=== PATIENT | male | born 1995 | race Caucasian/White ===

== ENCOUNTER → 2017-11-25 09:39 | Outpatient (CLI) | payer OTHER, SELFPAY | DX: Z23 Encounter for immunization (principal) | CPT/HCPCS: 90471; 90686 ==

== ENCOUNTER → 2018-11-14 15:24 | Outpatient (CLI) | payer OTHER, SELFPAY | DX: Z23 Encounter for immunization (principal) | CPT/HCPCS: 90471; 90686 ==

== ENCOUNTER → 2019-08-22 10:12 | Outpatient (CLI) | payer OTHER, SELFPAY ==
[2019-08-22 12:24] LABS: Creatinine Urine Random 35.4 mg/dL
[2019-08-22 12:32] LABS: Microalbumi Creatinin Ratio Ur 16.9 ug/mg CR (<30); Microalbumin Urine Random < 0.6 mg/dL (0-1.6)
[2019-08-22 13:52] LABS: Alanine Aminotransferase 19 IU/L (<50); Albumin 4.5 g/dL (3.5-5.0); Albumin Globulin Ratio 1.7 (1.0-2.8); Alkaline Phosphatase 54 U/L (38-126); Aspartate Aminotransferase 26 IU/L (17-59); BUN Creatinine Ratio 16.1 (6-22); Bilirubin Total 1.4 mg/dL (0.2-1.3); Blood Urea Nitrogen 14 mg/dL (9-20); Calcium 9.7 mg/dL (8.4-10.2); Carbon Dioxide 29 mmol/L (22-32); Chloride 102 mmol/L (98-107); Cholesterol 143 mg/dL (140-199); Estimated Glomerular Filt Rate > 60.0 mL/min (>60); Globulin 2.6 g/dL (1.7-4.1); Glucose 146 mg/dL (70-100); HDL Cholesterol 44 mg/dL (40-60); HEMOLYSIS < 15 (0-50); LDL Cholesterol Calculated 91 mg/dL (<100); Potassium 4.7 mmol/L (3.4-5.1); Sodium 137 mmol/L (137-145); Total Protein 7.1 g/dL (6.3-8.2); Triglycerides 38 mg/dL (35-150)
[2019-08-22 14:02] LABS: LDL Cholesterol Direct 95 mg/dL (<100)
== END ==
PROVIDERS: PCP Student in an Organized Health Care Education/Training Program; Referring Provider Internal Medicine Endocrinology, Diabetes & Metabolism; Visit Provider Internal Medicine Endocrinology, Diabetes & Metabolism
DX: E10.649 Type 1 diabetes mellitus with hypoglycemia without coma (principal)
CPT/HCPCS: 36415; 80053; 80061; 82043; 82570; 83721

== ENCOUNTER → 2019-10-03 08:28 | Outpatient (CLI) | payer OTHER, SELFPAY ==
--- NOTE | 2019-10-03 08:28 | DI.MRI.S_ITS ---
PROCEDURE: MR KNEE LT WO CON INDICATIONS: Left knee pain, instability TECHNIQUE: Noncontrast sagittal PD fast spin echo and T2 fast spin echo with fat saturation, sagittal 3-D FLASH with fat saturation; coronal T1 spin echo and PD fast spin echo with fat saturation, and axial PD fast spin echo with fat saturation through the knee. COMPARISON: None. FINDINGS: Image quality: Excellent. Menisci: The medial and lateral menisci demonstrate normal morphology and internal signal. The meniscal root ligaments appear intact. Cruciate ligaments: The anterior and posterior cruciate ligaments appear intact. Medial structures: Mild thickening of the proximal medial collateral ligament is most likely related to an old sprain. Visualized portions of the pes anserinus tendons appear normal. No abnormal bursal fluid. Lateral structures: The lateral collateral ligament, long and short heads of the biceps femoris tendon appear intact. The popliteus tendon appears intact. No signs of posterolateral corner injury. Iliotibial band appears normal. Anterior structures: There is mild patella violeta. A mildly congenitally shallow trochlear groove is seen without patellar subluxation. The tibial tubercle-trochlear groove distance is within normal limits. The medial patellofemoral ligament is grossly intact. No edema in the infrapatellar fat pad. Bones and cartilage: No bone marrow contusions or fractures. A focal full-thickness cartilage defect is seen at the anterior weight-bearing portion of the lateral femoral condyle measuring approximately 5 x 3 mm with associated subchondral cystic changes. There is a mildly concave appearance of the anterolateral portion of the lateral femoral condyle without associated edema. Additional larger areas of full-thickness cartilage loss are seen in the median ridge and medial facet of the patella. The pattern of injuries is suspicious for a remote prior episode of transient lateral patellar dislocation. The medial compartment articular cartilage is maintained. Joint space: There is a small joint effusion. A trace medial popliteal cyst is present. IMPRESSION: 1. Full-thickness cartilage loss is seen in the inferior portion of the median ridge and medial facet of the patella. Additional focus of cartilage loss is seen at the anterior weight-bearing portion of the lateral femoral condyle with subchondral cystic changes, and there is mild chronic cortical irregularity of the adjacent anterolateral portion of the lateral femoral condyle. The pattern of injuries is suspicious for a remote prior episode of transient lateral patellar dislocation. 2. Mild patella violeta. 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 The tibial tubercle-trochlear groove distance is within normal limits. 3. Intact cruciate and collateral ligaments. No meniscal tear. 4. Small joint effusion. Dictated by: Ruben Hart M.D. on 10/03/2019 at 9:41 Approved by: Ruben Hart M.D. on 10/03/2019 at 9:54
== END ==
PROVIDERS: PCP Student in an Organized Health Care Education/Training Program; Referring Provider Student in an Organized Health Care Education/Training Program; Visit Provider Student in an Organized Health Care Education/Training Program
DX: M25.562 Pain in left knee (principal); M22.2X2 Patellofemoral disorders, left knee; M25.462 Effusion, left knee
CPT/HCPCS: 73721

== ENCOUNTER → 2019-11-17 02:57 | Outpatient (CLI) | payer OTHER, SELFPAY | PROVIDERS: PCP Student in an Organized Health Care Education/Training Program; Referring Provider Internal Medicine; Visit Provider Internal Medicine | DX: Z23 Encounter for immunization (principal) | CPT/HCPCS: 90471; 90686 ==

== ENCOUNTER → 2019-12-20 11:24 | Outpatient (CLI) | payer OTHER, SELFPAY ==
[2019-12-20 14:53] LABS: Hemoglobin A1C% w Est Avg Glu 7.2 % (4.0-6.0)
== END ==
PROVIDERS: PCP Student in an Organized Health Care Education/Training Program; Referring Provider Internal Medicine Endocrinology, Diabetes & Metabolism; Visit Provider Internal Medicine Endocrinology, Diabetes & Metabolism
DX: E10.8 Type 1 diabetes mellitus with unspecified complications (principal); E10.649 Type 1 diabetes mellitus with hypoglycemia without coma
CPT/HCPCS: 83036

== ENCOUNTER → 2020-01-16 12:12 | Outpatient (CLI) | payer OTHER, SELFPAY ==
[2020-01-17 08:22] LABS: Varicella IgG Antibody 261 index (Immune >165)
[2020-01-17 23:59] LABS: QuantiFERON Mitogen Value 7.69 IU/mL (.); QuantiFERON Nil Value 0.28 IU/mL (.); QuantiFERON TB Gold Plus Positive (Negative); QuantiFERON TB1 Ag Value 2.41 IU/mL (.); QuantiFERON TB2 Ag Value 1.33 IU/mL (.)
== END ==
PROVIDERS: PCP Student in an Organized Health Care Education/Training Program; Referring Provider Student in an Organized Health Care Education/Training Program; Visit Provider Student in an Organized Health Care Education/Training Program
DX: Z02.0 Encounter for examination for admission to educational institution (principal)
CPT/HCPCS: 36415; 86480; 86787

== ENCOUNTER → 2020-01-18 19:23 | Outpatient (CLI) | payer OTHER, SELFPAY ==
--- NOTE | 2020-01-18 19:25 | DI.RAD.S_ITS ---
PROCEDURE: XR CHEST 2V INDICATIONS: Positive quantiferon assay TECHNIQUE: 2 views of the chest were acquired. COMPARISON: None. FINDINGS: Surgical changes and devices: None. Lungs and pleura: Lungs are clear. No pleural effusions or pneumothorax. Mediastinum: Mediastinal contours are normal. Heart size is normal. Bones and chest wall: No suspicious bony abnormalities. Soft tissues appear unremarkable. IMPRESSION: No evidence acute pulmonary process. No evidence of active pulmonary tuberculosis. Dictated by: Shahriar Lovett M.D. on 01/18/2020 at 19:34 Approved by: Shahriar Lovett M.D. on 01/18/2020 at 19:34
== END ==
PROVIDERS: PCP Student in an Organized Health Care Education/Training Program; Referring Provider Student in an Organized Health Care Education/Training Program; Visit Provider Student in an Organized Health Care Education/Training Program
DX: R76.12 Nonspecific reaction to cell mediated immunity measurement of gamma interferon antigen response without active tuberculosis (principal)
CPT/HCPCS: 71046

== ENCOUNTER → 2020-03-11 08:16 | Outpatient (CLI) | payer OTHER, SELFPAY ==
[2020-03-11 10:04] LABS: COVID19 -Nasal RAPID Negative (Negative)
== END ==
PROVIDERS: PCP Student in an Organized Health Care Education/Training Program; Visit Provider Family Medicine Sleep Medicine
DX: Z20.822 Contact with and (suspected) exposure to COVID-19 (principal); G47.30 Sleep apnea, unspecified
CPT/HCPCS: 87635; 95810

== ENCOUNTER → 2020-03-12 11:45 | Outpatient (CLI) | payer OTHER, SELFPAY ==
[2020-03-12 12:55] LABS: Ur Creatinine Normal (Normal)
[2020-03-12 12:56] LABS: UR Morphine/Opiate cutoff 300 Negative (Negative); Ur Specific Gravity Normal (Normal); Urine Amphetamines Negative (Negative); Urine Barbiturates Negative (Negative); Urine Benzodiazepines Negative (Negative); Urine Cocaine Negative (Negative); Urine MDMA Negative (Negative); Urine Methadone Negative (Negative); Urine Methamphetamines Negative (Negative); Urine Oxycodone Negative (Negative); Urine Phencyclidine Negative (Negative); Urine Tetrahydrocannabinol Negative (Negative); Urine Tricyclic Antidepressant Negative (Negative); Urine pH Normal (Normal)
== END ==
PROVIDERS: PCP Student in an Organized Health Care Education/Training Program; Visit Provider Family Medicine Sleep Medicine
DX: G47.19 Other hypersomnia (principal); G47.30 Sleep apnea, unspecified
CPT/HCPCS: 80305; 95805

== ENCOUNTER → 2020-10-16 08:32 | Outpatient (CLI) | payer OTHER, SELFPAY ==
[2020-10-16 10:23] LABS: Alanine Aminotransferase 22 IU/L (<50); Albumin Globulin Ratio 1.4 (1.0-2.8); Alkaline Phosphatase 46 U/L (38-126); Aspartate Aminotransferase 29 IU/L (17-59); BUN Creatinine Ratio 20.8 (6-22); Bilirubin Total 1.2 mg/dL (0.2-1.3); Blood Urea Nitrogen 16 mg/dL (9-20); Calcium 9.2 mg/dL (8.4-10.2); Carbon Dioxide 28 mmol/L (22-32); Chloride 105 mmol/L (98-107); Cholesterol 163 mg/dL (140-199); Estimated Glomerular Filt Rate > 60.0 mL/min (>60); Globulin 2.8 g/dL (1.7-4.1); Glucose 118 mg/dL (70-100); HDL Cholesterol 59 mg/dL (40-60); HEMOLYSIS < 15 (0-50); LDL Cholesterol Calculated 98 mg/dL (<100); Potassium 4.1 mmol/L (3.4-5.1); Sodium 137 mmol/L (137-145); Total Protein 6.8 g/dL (6.3-8.2); Triglycerides 31 mg/dL (35-150)
[2020-10-16 10:24] LABS: Creatinine Urine Random 174.4 mg/dL
[2020-10-16 10:28] LABS: Microalbumi Creatinin Ratio Ur 4.5 ug/mg CR (<30); Microalbumin Urine Random 0.8 mg/dL (0-1.6)
[2020-10-16 12:19] LABS: Hemoglobin A1C% w Est Avg Glu 6.6 % (4.0-6.0)
== END ==
PROVIDERS: Family Provider Student in an Organized Health Care Education/Training Program; PCP Student in an Organized Health Care Education/Training Program; Referring Provider Internal Medicine Endocrinology, Diabetes & Metabolism; Visit Provider Internal Medicine Endocrinology, Diabetes & Metabolism
DX: E10.649 Type 1 diabetes mellitus with hypoglycemia without coma (principal)
CPT/HCPCS: 36415; 80053; 80061; 82043; 82570; 83036

== ENCOUNTER 2020-10-22 07:30 | Outpatient (RCR) | payer OTHER, SELFPAY ==
--- NOTE | 2020-05-01 10:18 | PT.OIE ---
Current Diagnoses Recurrent dislocation of patella, left knee (05/01/20) Difficulty in walking, not elsewhere classified (05/01/20) Weakness (05/01/20) Past Medical History (Last Updated 04/29/20 @ 13:14 by Sarah Solano PA-C) Oral thrush Visit Care Team Role Provider Type Octavio Whaley MD Family Provider Physician Primary Care Provider Specialty: Internal Medicine Address: [address] [place] [address], [address], [address] Email: [email or web address] Henrik Cabrera MD Attending Provider Non-Staff Referring Provider Specialty: Medical Address: [address] [place] [address], [phone] Email: Physical Therapy Initial Evaluation PT-OP-A Visit Information Start: 04/30/20 17:12 Freq: Status: Active Protocol: Document 05/01/20 07:27 [facility] (Rec: 05/01/20 08:15 [facility] [id number]) Out-Patient Physical Therapy Visit Information Visit Information Visit Type Initial Evaluation Visit Note 18 visits before pre auth Visit Start Time 07:30 Visit Stop Time 08:15 Total Visit Minutes 45 Visit Number 1 Number of SIFTER OPERATOR Visits 0 PT-OP-B Current Condition Start: 04/30/20 17:12 Freq: Status: Active Protocol: Document 05/01/20 07:27 [facility] (Rec: 05/01/20 08:15 [facility] [id number]) Current Condition History of Current Condition Onset Date 04/25/20 Current Complaints L arthroscopic lat release, open MPFL reconstruction& tibial tub osteotomy History of Current Condition Pt reports surgery went well and they used donor tendon for L arthroscopic lat release, open MPFL reconstruction& tibial tubercle osteotomy. Prior to surgery, pt subluxed his patella at least 4 times starting in 2014 when he first tore it. He had slipped on a piece of ice and leg went out to the side. Pain has not been too bad. Pt got CPM yesterday and that he will have it for 3 weeks. Pt was told to keep brace at 0 and can reposition with up to 30 deg. He changed the guaze yesterday. Follow up is next Tuesday. Was told you bear up to 50% on his LLE. Prior Treatments and Tests Tried PT and was unsuccessful Treatment Goals Patient/Caregiver Goals return to hiking, has clinical starting in a couple weeks, make sure that he can get as much movement out of his knee as possible w/goal of full range PT-OP-C Subjective Start: 04/30/20 17:12 Freq: Status: Active Protocol: Document 05/01/20 07:27 [facility] (Rec: 05/01/20 08:15 [facility] [id number]) Patient Questionnaires Lower Extremity Functional Scale LEFS Score 23 OP-PT Pain Assessment Location L knee Pain Location Details around patella Intensity 4 Scale Used Numeric (0 - 10) Description Aching,With Movement Description- Other can't get comfortable Frequency Intermittent Pain Aggravating Factors Standing,Walking Pain Alleviating Factors Cold,Elevation PT-OP-F Manual Assessment Start: 04/30/20 17:12 Freq: Status: Active Protocol: Document 05/01/20 07:27 [facility] (Rec: 05/01/20 08:15 [facility] [id number]) Manual Assessments Soft Tissue Assessment Soft Tissue Mobility Assessment mild swelling on L side, Pt w/ guaze wrap so incision not assessed PT-OP-G Mobility & Gait Start: 04/30/20 17:12 Freq: Status: Active Protocol: Document 05/01/20 07:27 [facility] (Rec: 05/01/20 08:15 [facility] [id number]) OP Gait Assessment Comments Gait Comments Pt amb in locked brace NWB with B auxillary crutches PT-OP-K Range of Motion Start: 04/30/20 17:12 Freq: Status: Active Protocol: Document 05/01/20 07:27 [facility] (Rec: 05/01/20 08:15 [facility] [id number]) Knee Goniometric Range of Motion Knee Right Flexion Active (degrees) 140 Extension Active (degrees) 0 Left Flexion Active (degrees) 40 Extension Active (degrees) 8 PT-OP-M Strength Start: 04/30/20 17:12 Freq: Status: Active Protocol: Document 05/01/20 07:27 [facility] (Rec: 05/01/20 08:15 [facility] [id number]) Hip Strength Hip Manual Muscle Testing Right Flexion (L2) 5 Normal Extension (S1) 5 Normal External Rotation 5 Normal Internal Rotation 5 Normal Left Flexion (L2) 2+ Poor+ Extension (S1) 3 Fair Abduction 4- Good- Adduction 3+ Fair+ Comments rotations not tested d/t restrictions, tested hip flex w/SL brace on Knee Strength Knee Manual Muscle Testing Right Flexion (S2) 5 Normal Extension (L3) 5 Normal Left Comments n/t tested d/t restrictions Ankle/Foot Strength Ankle and Foot Manual Muscle Testing Right Dorsiflexion (L4) 5 Normal Plantarflexion (S1) 5 Normal Left Dorsiflexion (L4) 5 Normal Plantarflexion (S1) 5 Normal Comments PF tested seated B PT-OP-Q Treatments Start: 04/30/20 17:12 Freq: Status: Active Protocol: Document 05/01/20 07:27 [facility] (Rec: 05/01/20 08:15 [facility] [id number]) Therapeutic Exercises Supine Exercises HS stretch Side left Reps/Minutes 30 sec quad set Side left Reps/Minutes 5 sec x10 heel slides Side left Reps/Minutes 15 Comments to 40 deg Prone Exercises hang Prone Exercise Name for knee ext Side left Reps/Minutes 1 min PT-OP-T Assessment and Plan Start: 04/30/20 17:12 Freq: Status: Active Protocol: Document 05/01/20 07:27 [facility] (Rec: 05/01/20 08:15 [facility] [id number]) Physical Therapy Assessment Rehab Potential Rehabilitation Potential Good Evaluation Complexity Number of Personal Factors/Comorbidities 1-2 Number of Body Systems Impaired 4 or More Clinical Presentation at Evaluation Evolving Impairments Impairments Activity Tolerance,Balance, Edema,Functional Activities, Functional Mobility,Gait, Integument,Pain,ROM,Soft Tissue Mobility,Strength, Transfers Goals LEFS Impairment 23 Short Term Goal (STG) Pt will improve score to at least 45/80 to show improved functional ability. STG Duration 06/06/20 Skilled Nursing Goal (LTG) Pt will improve score to at least 65/80 to show improved functional ability. LTG Duration 08/01/20 functional activity Short Term Goal (STG) Pt will be able to squat down to spanish moss picker objects. STG Duration 07/01/20 Briar Shop Supervisor Goal (LTG) Pt will be able to return to full work and school duties without inc pain. LTG Duration 08/01/20 gait Short Term Goal (STG) Pt will be able to amb with good mechanics with brace for up to 1/2 mile. STG Duration 06/26/20 Briar Shop Supervisor Goal (LTG) pt will be able to amb without brace with good mechancis and no pain for at least 2 miles. LTG Duration 08/01/20 strength Short Term Goal (STG) Pt will be indep with HEP STG Duration 06/01/20 Skilled Nursing Goal (LTG) Pt will score 5/5 on all LE strength B to show imrpoved stability to allow full return to activity LTG Duration 08/01/20 ROM Short Term Goal (STG) Pt will improve AROM to 0-115 STG Duration 06/30/20 Briar Shop Supervisor Goal (LTG) Pt will have full ROM 0-135 without pain in order to allow him to return to typical activities including descending stairs without pain . LTG Duration 08/01/20 Assessment Summary Assessment Pt presents 6 days s/p L arthroscopic lat release, open MPFL reconstruction& tibial tub osteotomy with good pain control. Pt has protocol to follow for 20 weeks with questions re: protocol already directed to physician office. He is using a CPM at home for ROM and is in a locked brace for gait at this time and using brace in unlocked position to 0-45 for the first 2 weeks. 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 He would benefit from PT to work on ROM , strength, gait mechanics & balance to return to full activity and dec pain. Physical Therapy Plan Frequency and Duration Frequency of Treatment 1-2x/week Duration of Treatment 3 months Plan of Care Start Date 05/01/20 Plan of Care End Date 08/01/20 Therapeutic Interventions Therapeutic Interventions Aquatic Therapy,Balance Training,Gait Training,Home Exercise Program,Joint Mobilizations,Manual Therapy, Neuromuscular Re-education, Patient/Caregiver Education, Self-Care/Home Management,Soft Tissue Mobilization,Taping, Therapeutic Activities, Therapeutic Exercises Modalities Cold Pack/Ice Massage,Electric Stimulation,Hot Packs, Infrared Therapy,Iontophoresis ,Ultrasound Next Visit Focus/Plan Next Note Type Treatment Note Next Visit Plan Review exercises, HS set, SLR, s/l abd, s/l add, prone ext, SAQ, progress exercises based on information after physician office returns call to PT w/ questions re: ROM & WB, STM
--- NOTE | 2020-05-01 10:18 | PT.OPPOC ---
Physical, Occupational & Speech Therapy At [facility] Current Diagnoses Recurrent dislocation of patella, left knee (05/01/20) Difficulty in walking, not elsewhere classified (05/01/20) Weakness (05/01/20) Visit Care Team Role Provider Type Octavio Whaley MD Family Provider Physician Primary Care Provider Specialty: Internal Medicine Address: [address] [place] [address], [facility] [address], [address] Email: [email or web address] Henrik Cabrera MD Attending Provider Non-Staff Referring Provider Specialty: Medical Address: [address] [place] [address], [phone] Email: Plan Of Care PT-OP-T Assessment and Plan Start: 04/30/20 17:12 Freq: Status: Active Protocol: Document 05/01/20 07:27 [facility] (Rec: 05/01/20 08:15 [facility] [id number]) Physical Therapy Assessment Rehab Potential Rehabilitation Potential Good Evaluation Complexity Number of Personal Factors/Comorbidities 1-2 Number of Body Systems Impaired 4 or More Clinical Presentation at Evaluation Evolving Impairments Impairments Activity Tolerance,Balance, Edema,Functional Activities, Functional Mobility,Gait, Integument,Pain,ROM,Soft Tissue Mobility,Strength, Transfers Goals LEFS Impairment 23 Short Term Goal (STG) Pt will improve score to at least 45/80 to show improved functional ability. STG Duration 06/06/20 Jail Goal (LTG) Pt will improve score to at least 65/80 to show improved functional ability. LTG Duration 08/01/20 functional activity Short Term Goal (STG) Pt will be able to squat down to pickling tank operator objects. STG Duration 07/01/20 Database Reporting Consultant Goal (LTG) Pt will be able to return to full work and school duties without inc pain. LTG Duration 08/01/20 gait Short Term Goal (STG) Pt will be able to amb with good mechanics with brace for up to 1/2 mile. STG Duration 06/26/20 Database Reporting Consultant Goal (LTG) pt will be able to amb without brace with good mechancis and no pain for at least 2 miles. LTG Duration 08/01/20 strength Short Term Goal (STG) Pt will be indep with HEP STG Duration 06/01/20 Jail Goal (LTG) Pt will score 5/5 on all LE strength B to show imrpoved stability to allow full return to activity LTG Duration 08/01/20 ROM Short Term Goal (STG) Pt will improve AROM to 0-115 STG Duration 06/30/20 Database Reporting Consultant Goal (LTG) Pt will have full ROM 0-135 without pain in order to allow him to return to typical activities including descending stairs without pain . LTG Duration 08/01/20 Assessment Summary Assessment Pt presents 6 days s/p L arthroscopic lat release, open MPFL reconstruction& tibial tub osteotomy with good pain control. Pt has protocol to follow for 20 weeks with questions re: protocol already directed to physician office. He is using a CPM at home for ROM and is in a locked brace for gait at this time and using brace in unlocked position to 0-45 for the first 2 weeks. 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 He would benefit from PT to work on ROM , strength, gait mechanics & balance to return to full activity and dec pain. Physical Therapy Plan Frequency and Duration Frequency of Treatment 1-2x/week Duration of Treatment 3 months Plan of Care Start Date 05/01/20 Plan of Care End Date 08/01/20 Therapeutic Interventions Therapeutic Interventions Aquatic Therapy,Balance Training,Gait Training,Home Exercise Program,Joint Mobilizations,Manual Therapy, Neuromuscular Re-education, Patient/Caregiver Education, Self-Care/Home Management,Soft Tissue Mobilization,Taping, Therapeutic Activities, Therapeutic Exercises Modalities Cold Pack/Ice Massage,Electric Stimulation,Hot Packs, Infrared Therapy,Iontophoresis ,Ultrasound Next Visit Focus/Plan Next Note Type Treatment Note Next Visit Plan Review exercises, HS set, SLR, s/l abd, s/l add, prone ext, SAQ, progress exercises based on information after physician office returns call to PT w/ questions re: ROM & WB, STM Plan of Care Dates Plan of Care Start Date 05/01/20 Plan of Care End Date 08/01/20 Electronically Signed by: Frances Antonio, PT 05/01/20 1018 Please Sign and Return: I have reviewed this Plan of Care and certify that the skilled therapy services above are required to meet the patient?s needs. Physician Signature Date Printed Name and Credentials Clinical Instructor Signature Printed Name and Credentials
--- NOTE | 2020-05-05 08:18 | PT.OTN ---
Current Diagnoses Recurrent dislocation of patella, left knee (05/05/20) Difficulty in walking, not elsewhere classified (05/05/20) Weakness (05/05/20) Physical Therapy Treatment Note PT-OP-A Visit Information Start: 04/30/20 17:12 Freq: Status: Active Protocol: Document 05/05/20 07:30 [facility] (Rec: 05/05/20 08:18 [facility] [id number]) Out-Patient Physical Therapy Visit Information Visit Information Visit Type Treatment Note Visit Start Time 07:30 Visit Stop Time 08:15 Total Visit Minutes 45 Visit Number 2 Number of CARE PROGRAM RESIDENT Visits 0 PT-OP-B Current Condition Start: 04/30/20 17:12 Freq: Status: Active Protocol: Document 05/01/20 07:27 [facility] (Rec: 05/01/20 08:15 [facility] [id number]) Current Condition History of Current Condition Onset Date 04/25/20 Current Complaints L arthroscopic lat release, open MPFL reconstruction& tibial tub osteotomy History of Current Condition Pt reports surgery went well and they used donor tendon for L arthroscopic lat release, open MPFL reconstruction& tibial tubercle osteotomy. Prior to surgery, pt subluxed his patella at least 4 times starting in 2014 when he first tore it. He had slipped on a piece of ice and leg went out to the side. Pain has not been too bad. Pt got CPM yesterday and that he will have it for 3 weeks. Pt was told to keep brace at 0 and can reposition with up to 30 deg. He changed the guaze yesterday. Follow up is next Tuesday. Was told you bear up to 50% on his LLE. Prior Treatments and Tests Tried PT and was unsuccessful Treatment Goals Patient/Caregiver Goals return to hiking, has clinical starting in a couple weeks, make sure that he can get as much movement out of his knee as possible w/goal of full range PT-OP-C Subjective Start: 04/30/20 17:12 Freq: Status: Active Protocol: Document 05/05/20 07:30 [facility] (Rec: 05/05/20 08:18 [facility] [id number]) OP-PT Subjective Patient Comments Patient Comments Pt reprots being able to get up to 57 deg on CPM this weekend. He had inc swelling after shower when did standing . PT-OP-F Manual Assessment Start: 04/30/20 17:12 Freq: Status: Active Protocol: Document 05/01/20 07:27 [facility] (Rec: 05/01/20 08:15 [facility] [id number]) Manual Assessments Soft Tissue Assessment Soft Tissue Mobility Assessment mild swelling on L side, Pt w/ guaze wrap so incision not assessed PT-OP-G Mobility & Gait Start: 04/30/20 17:12 Freq: Status: Active Protocol: Document 05/01/20 07:27 [facility] (Rec: 05/01/20 08:15 [facility] [id number]) OP Gait Assessment Comments Gait Comments Pt amb in locked brace NWB with B auxillary crutches PT-OP-K Range of Motion Start: 04/30/20 17:12 Freq: Status: Active Protocol: Document 05/01/20 07:27 [facility] (Rec: 05/01/20 08:15 [facility] [id number]) Knee Goniometric Range of Motion Knee Right Flexion Active (degrees) 140 Extension Active (degrees) 0 Left Flexion Active (degrees) 40 Extension Active (degrees) 8 PT-OP-M Strength Start: 04/30/20 17:12 Freq: Status: Active Protocol: Document 05/01/20 07:27 [facility] (Rec: 05/01/20 08:15 [facility] [id number]) Hip Strength Hip Manual Muscle Testing Right Flexion (L2) 5 Normal Extension (S1) 5 Normal External Rotation 5 Normal Internal Rotation 5 Normal Left Flexion (L2) 2+ Poor+ Extension (S1) 3 Fair Abduction 4- Good- Adduction 3+ Fair+ Comments rotations not tested d/t restrictions, tested hip flex w/SL brace on Knee Strength Knee Manual Muscle Testing Right Flexion (S2) 5 Normal Extension (L3) 5 Normal Left Comments n/t tested d/t restrictions Ankle/Foot Strength Ankle and Foot Manual Muscle Testing Right Dorsiflexion (L4) 5 Normal Plantarflexion (S1) 5 Normal Left Dorsiflexion (L4) 5 Normal Plantarflexion (S1) 5 Normal Comments PF tested seated B PT-OP-Q Treatments Start: 04/30/20 17:12 Freq: Status: Active Protocol: Document 05/05/20 07:30 [facility] (Rec: 05/05/20 08:18 [facility] [id number]) Therapeutic Exercises Supine Exercises glute sets Side bilateral Reps/Minutes 1. B 5x 2. single alt 5 x ea HS set Side left Reps/Minutes 5 sec x10 SLR Supine Exercise Name brace locked Side left Reps/Minutes 10 TKE Supine Exercise Name SAQ Side left Reps/Minutes 15 quad set Side left Reps/Minutes 5 sec x10 heel slides Side left Reps/Minutes 10 Comments to 60 deg Prone Exercises hip ext Prone Exercise Name alt Side bilateral Reps/Minutes 15 Sidelying Exercises hip add Side left Reps/Minutes 15 hip abd Side bilateral Reps/Minutes 15 Gait Training Gait Activity WB Comments 1. standing on scale for 50% WB 2. STep through on scale for 50% WB 3. walking with crutches 50% WB PT-OP-T Assessment and Plan Start: 04/30/20 17:12 Freq: Status: Active Protocol: Document 05/05/20 07:30 [facility] (Rec: 05/05/20 08:18 [facility] [id number]) Physical Therapy Assessment Goals LEFS Impairment 23 Short Term Goal (STG) Pt will improve score to at least 45/80 to show improved functional ability. STG Duration 06/06/20 Lead Teacher Goal (LTG) Pt will improve score to at least 65/80 to show improved functional ability. LTG Duration 08/01/20 functional activity Short Term Goal (STG) Pt will be able to squat down to olive picker objects. STG Duration 07/01/20 Lead Teacher Goal (LTG) Pt will be able to return to full work and school duties without inc pain. LTG Duration 08/01/20 gait Short Term Goal (STG) Pt will be able to amb with good mechanics with brace for up to 1/2 mile. STG Duration 06/26/20 Lead Teacher Goal (LTG) pt will be able to amb without brace with good mechancis and no pain for at least 2 miles. LTG Duration 08/01/20 strength Short Term Goal (STG) Pt will be indep with HEP STG Duration 06/01/20 Lead Teacher Goal (LTG) Pt will score 5/5 on all LE strength B to show imrpoved stability to allow full return to activity LTG Duration 08/01/20 ROM Short Term Goal (STG) Pt will improve AROM to 0-115 STG Duration 06/30/20 Lead Teacher Goal (LTG) Pt will have full ROM 0-135 without pain in order to allow him to return to typical activities including descending stairs without pain . LTG Duration 08/01/20 Assessment Summary Assessment Pt is on week 2 of rehab as of Tuesday and is progressing well with range. He was able to inc range ot 56 AROM with heel slide today. His MD office returned call and said pt could be 50% WB and he could inc ROM to 60 deg week 2 . He had no inc pain with exercises today Physical Therapy Plan Frequency and Duration Frequency of Treatment 1-2x/week Duration of Treatment 3 months Plan of Care Start Date 05/01/20 Plan of Care End Date 08/01/20 Next Visit Focus/Plan Next Note Type Treatment Note Next Visit Plan Progress per physician after appt,
--- NOTE | 2020-05-12 08:15 | PT.OTN ---
Current Diagnoses Recurrent dislocation of patella, left knee (05/12/20) Difficulty in walking, not elsewhere classified (05/12/20) Weakness (05/12/20) Physical Therapy Treatment Note PT-OP-A Visit Information Start: 04/30/20 17:12 Freq: Status: Active Protocol: Document 05/12/20 07:29 [facility] (Rec: 05/12/20 08:15 [facility] [id number]) Out-Patient Physical Therapy Visit Information Visit Information Visit Type Treatment Note Visit Start Time 07:31 Visit Stop Time 08:11 Total Visit Minutes 40 Visit Number 3 Number of MATH SPECIALIST Visits 0 PT-OP-B Current Condition Start: 04/30/20 17:12 Freq: Status: Active Protocol: Document 05/01/20 07:27 [facility] (Rec: 05/01/20 08:15 [facility] [id number]) Current Condition History of Current Condition Onset Date 04/25/20 Current Complaints L arthroscopic lat release, open MPFL reconstruction& tibial tub osteotomy History of Current Condition Pt reports surgery went well and they used donor tendon for L arthroscopic lat release, open MPFL reconstruction& tibial tubercle osteotomy. Prior to surgery, pt subluxed his patella at least 4 times starting in 2014 when he first tore it. He had slipped on a piece of ice and leg went out to the side. Pain has not been too bad. Pt got CPM yesterday and that he will have it for 3 weeks. Pt was told to keep brace at 0 and can reposition with up to 30 deg. He changed the guaze yesterday. Follow up is next Tuesday. Was told you bear up to 50% on his LLE. Prior Treatments and Tests Tried PT and was unsuccessful Treatment Goals Patient/Caregiver Goals return to hiking, has clinical starting in a couple weeks, make sure that he can get as much movement out of his knee as possible w/goal of full range PT-OP-C Subjective Start: 04/30/20 17:12 Freq: Status: Active Protocol: Document 05/12/20 07:29 [facility] (Rec: 05/12/20 08:15 [facility] [id number]) OP-PT Subjective Patient Comments Patient Comments Pt reports occ shooting pains med up to just sup of knee. Notes MD said after he gets to 90 deg, he can inc WB. notes said he can go past the 15 deg recommended as long as its comfortable. PT-OP-F Manual Assessment Start: 04/30/20 17:12 Freq: Status: Active Protocol: Document 05/01/20 07:27 [facility] (Rec: 05/01/20 08:15 [facility] [id number]) Manual Assessments Soft Tissue Assessment Soft Tissue Mobility Assessment mild swelling on L side, Pt w/ guaze wrap so incision not assessed PT-OP-G Mobility & Gait Start: 04/30/20 17:12 Freq: Status: Active Protocol: Document 05/01/20 07:27 [facility] (Rec: 05/01/20 08:15 [facility] [id number]) OP Gait Assessment Comments Gait Comments Pt amb in locked brace NWB with B auxillary crutches PT-OP-K Range of Motion Start: 04/30/20 17:12 Freq: Status: Active Protocol: Document 05/01/20 07:27 [facility] (Rec: 05/01/20 08:15 [facility] [id number]) Knee Goniometric Range of Motion Knee Right Flexion Active (degrees) 140 Extension Active (degrees) 0 Left Flexion Active (degrees) 40 Extension Active (degrees) 8 PT-OP-M Strength Start: 04/30/20 17:12 Freq: Status: Active Protocol: Document 05/01/20 07:27 [facility] (Rec: 05/01/20 08:15 [facility] [id number]) Hip Strength Hip Manual Muscle Testing Right Flexion (L2) 5 Normal Extension (S1) 5 Normal External Rotation 5 Normal Internal Rotation 5 Normal Left Flexion (L2) 2+ Poor+ Extension (S1) 3 Fair Abduction 4- Good- Adduction 3+ Fair+ Comments rotations not tested d/t restrictions, tested hip flex w/SL brace on Knee Strength Knee Manual Muscle Testing Right Flexion (S2) 5 Normal Extension (L3) 5 Normal Left Comments n/t tested d/t restrictions Ankle/Foot Strength Ankle and Foot Manual Muscle Testing Right Dorsiflexion (L4) 5 Normal Plantarflexion (S1) 5 Normal Left Dorsiflexion (L4) 5 Normal Plantarflexion (S1) 5 Normal Comments PF tested seated B PT-OP-Q Treatments Start: 04/30/20 17:12 Freq: Status: Active Protocol: Document 05/12/20 07:29 [facility] (Rec: 05/12/20 08:15 [facility] [id number]) Gym Equipment Therapeutic Ball supine Ball Size/Color 55cm Body Position Supine Comments 1. double leg knee flex x20 2. single leg knee flex x20 L 3. bridge w/knees ext 2x10 Therapeutic Exercises Sidelying Exercises hip abd Side left Reps/Minutes 15 Sitting Exercises flex Sitting Exercise Name seated slides on ground Side left Reps/Minutes 10x10 sec hold Manual Therapy Treatment Soft Tissue Mobilization L thigh Body Location L Comments 1. ITB rolling 2. MFR circumfrential thigh Self-Care/Home Management Treatment Education Other Education edu on what ROM progression will look like PT-OP-T Assessment and Plan Start: 04/30/20 17:12 Freq: Status: Active Protocol: Document 05/12/20 07:29 [facility] (Rec: 05/12/20 08:15 [facility] [id number]) Physical Therapy Assessment Goals LEFS Impairment 23 Short Term Goal (STG) Pt will improve score to at least 45/80 to show improved functional ability. STG Duration 06/06/20 Compressor Assembler Goal (LTG) Pt will improve score to at least 65/80 to show improved functional ability. LTG Duration 08/01/20 functional activity Short Term Goal (STG) Pt will be able to squat down to orange picking supervisor objects. STG Duration 07/01/20 Long-Term Goal (LTG) Pt will be able to return to full work and school duties without inc pain. LTG Duration 08/01/20 gait Short Term Goal (STG) Pt will be able to amb with good mechanics with brace for up to 1/2 mile. STG Duration 06/26/20 Compressor Assembler Goal (LTG) pt will be able to amb without brace with good mechancis and no pain for at least 2 miles. LTG Duration 08/01/20 strength Short Term Goal (STG) Pt will be indep with HEP STG Duration 06/01/20 Long-Term Goal (LTG) Pt will score 5/5 on all LE strength B to show imrpoved stability to allow full return to activity LTG Duration 08/01/20 ROM Short Term Goal (STG) Pt will improve AROM to 0-115 STG Duration 06/30/20 Compressor Assembler Goal (LTG) Pt will have full ROM 0-135 without pain in order to allow him to return to typical activities including descending stairs without pain . LTG Duration 08/01/20 Assessment Summary Assessment Pt is doing well with ROM and was ble to get 70 deg upon attending session. He was easily able to get to 75 deg with session where brace was locked. Physical Therapy Plan Frequency and Duration Frequency of Treatment 1-2x/week Duration of Treatment 3 months Plan of Care Start Date 05/01/20 Plan of Care End Date 08/01/20 Next Visit Focus/Plan Next Note Type Treatment Note Next Visit Plan cont to porgress as tolerated
--- NOTE | 2020-05-19 08:15 | PT.OTN ---
Current Diagnoses Recurrent dislocation of patella, left knee (05/19/20) Difficulty in walking, not elsewhere classified (05/19/20) Weakness (05/19/20) Physical Therapy Treatment Note PT-OP-A Visit Information Start: 04/30/20 17:12 Freq: Status: Active Protocol: Document 05/19/20 07:43 [facility] (Rec: 05/19/20 08:14 [facility] [id number]) Out-Patient Physical Therapy Visit Information Visit Information Visit Type Treatment Note Visit Start Time 07:31 Visit Stop Time 08:12 Total Visit Minutes 41 Visit Number 4 Number of FIELD CARE MANAGER Visits 0 PT-OP-B Current Condition Start: 04/30/20 17:12 Freq: Status: Active Protocol: Document 05/01/20 07:27 [facility] (Rec: 05/01/20 08:15 [facility] [id number]) Current Condition History of Current Condition Onset Date 04/25/20 Current Complaints L arthroscopic lat release, open MPFL reconstruction& tibial tub osteotomy History of Current Condition Pt reports surgery went well and they used donor tendon for L arthroscopic lat release, open MPFL reconstruction& tibial tubercle osteotomy. Prior to surgery, pt subluxed his patella at least 4 times starting in 2014 when he first tore it. He had slipped on a piece of ice and leg went out to the side. Pain has not been too bad. Pt got CPM yesterday and that he will have it for 3 weeks. Pt was told to keep brace at 0 and can reposition with up to 30 deg. He changed the guaze yesterday. Follow up is next Tuesday. Was told you bear up to 50% on his LLE. Prior Treatments and Tests Tried PT and was unsuccessful Treatment Goals Patient/Caregiver Goals return to hiking, has clinical starting in a couple weeks, make sure that he can get as much movement out of his knee as possible w/goal of full range PT-OP-C Subjective Start: 04/30/20 17:12 Freq: Status: Active Protocol: Document 05/19/20 07:43 [facility] (Rec: 05/19/20 08:14 [facility] [id number]) OP-PT Subjective Patient Comments Patient Comments Pt reports getting to 92 on CPM. Notes limited pain. PT-OP-F Manual Assessment Start: 04/30/20 17:12 Freq: Status: Active Protocol: Document 05/01/20 07:27 [facility] (Rec: 05/01/20 08:15 [facility] [id number]) Manual Assessments Soft Tissue Assessment Soft Tissue Mobility Assessment mild swelling on L side, Pt w/ guaze wrap so incision not assessed PT-OP-G Mobility & Gait Start: 04/30/20 17:12 Freq: Status: Active Protocol: Document 05/01/20 07:27 [facility] (Rec: 05/01/20 08:15 [facility] [id number]) OP Gait Assessment Comments Gait Comments Pt amb in locked brace NWB with B auxillary crutches PT-OP-K Range of Motion Start: 04/30/20 17:12 Freq: Status: Active Protocol: Document 05/01/20 07:27 [facility] (Rec: 05/01/20 08:15 [facility] [id number]) Knee Goniometric Range of Motion Knee Right Flexion Active (degrees) 140 Extension Active (degrees) 0 Left Flexion Active (degrees) 40 Extension Active (degrees) 8 PT-OP-M Strength Start: 04/30/20 17:12 Freq: Status: Active Protocol: Document 05/01/20 07:27 [facility] (Rec: 05/01/20 08:15 [facility] [id number]) Hip Strength Hip Manual Muscle Testing Right Flexion (L2) 5 Normal Extension (S1) 5 Normal External Rotation 5 Normal Internal Rotation 5 Normal Left Flexion (L2) 2+ Poor+ Extension (S1) 3 Fair Abduction 4- Good- Adduction 3+ Fair+ Comments rotations not tested d/t restrictions, tested hip flex w/SL brace on Knee Strength Knee Manual Muscle Testing Right Flexion (S2) 5 Normal Extension (L3) 5 Normal Left Comments n/t tested d/t restrictions Ankle/Foot Strength Ankle and Foot Manual Muscle Testing Right Dorsiflexion (L4) 5 Normal Plantarflexion (S1) 5 Normal Left Dorsiflexion (L4) 5 Normal Plantarflexion (S1) 5 Normal Comments PF tested seated B PT-OP-Q Treatments Start: 04/30/20 17:12 Freq: Status: Active Protocol: Document 05/19/20 07:43 [facility] (Rec: 05/19/20 08:14 [facility] [id number]) Gym Equipment Therapeutic Ball supine Ball Size/Color 55cm Body Position Supine Comments 1. double leg knee flex x20 2. single leg knee flex x20 L 3. bridge w/knees ext 2x10 Therapeutic Exercises Supine Exercises calf stretch Side left Equipment Used towel Reps/Minutes 30 sec TKE Supine Exercise Name SAQ Side left Reps/Minutes 2x10 Comments over half foam quad set Side left Reps/Minutes 10sec x10 Sidelying Exercises hip abd Side left Reps/Minutes 15 Sitting Exercises resisted ankle Sitting Exercise Name PF Side left Equipment Used L4 Reps/Minutes 20 flex Sitting Exercise Name seated slides on ground Side left Reps/Minutes 10x10 sec hold Comments w/toe taps Manual Therapy Treatment Soft Tissue Mobilization L thigh Body Location L Comments 1. ITB rolling PT-OP-T Assessment and Plan Start: 04/30/20 17:12 Freq: Status: Active Protocol: Document 05/19/20 07:43 [facility] (Rec: 05/19/20 08:14 [facility] [id number]) Physical Therapy Assessment Goals LEFS Impairment 23 Short Term Goal (STG) Pt will improve score to at least 45/80 to show improved functional ability. STG Duration 06/06/20 Jail Goal (LTG) Pt will improve score to at least 65/80 to show improved functional ability. LTG Duration 08/01/20 functional activity Short Term Goal (STG) Pt will be able to squat down to tack picker objects. STG Duration 07/01/20 Jail Goal (LTG) Pt will be able to return to full work and school duties without inc pain. LTG Duration 08/01/20 gait Short Term Goal (STG) Pt will be able to amb with good mechanics with brace for up to 1/2 mile. STG Duration 06/26/20 Jail Goal (LTG) pt will be able to amb without brace with good mechancis and no pain for at least 2 miles. LTG Duration 08/01/20 strength Short Term Goal (STG) Pt will be indep with HEP STG Duration 06/01/20 Overnight Caregiver Goal (LTG) Pt will score 5/5 on all LE strength B to show imrpoved stability to allow full return to activity LTG Duration 08/01/20 ROM Short Term Goal (STG) Pt will improve AROM to 0-115 STG Duration 06/30/20 Overnight Caregiver Goal (LTG) Pt will have full ROM 0-135 without pain in order to allow him to return to typical activities including descending stairs without pain . LTG Duration 08/01/20 Assessment Summary Assessment Pt was able to get 90 deg today during SL ball rolls. He does wellw ith ext ROM and is showing good end range quad activation. Encouraged to inc holds w/quad sets Physical Therapy Plan Frequency and Duration Frequency of Treatment 1-2x/week Duration of Treatment 3 months Plan of Care Start Date 05/01/20 Plan of Care End Date 08/01/20 Next Visit Focus/Plan Next Note Type Treatment Note Next Visit Plan cont to porgress as tolerated per protocol
--- NOTE | 2020-05-26 08:15 | PT.OTN ---
Current Diagnoses Recurrent dislocation of patella, left knee (05/26/20) Difficulty in walking, not elsewhere classified (05/26/20) Weakness (05/26/20) Physical Therapy Treatment Note PT-OP-A Visit Information Start: 04/30/20 17:12 Freq: Status: Active Protocol: Document 05/26/20 07:50 [facility] (Rec: 05/26/20 08:15 [facility] [id number]) Out-Patient Physical Therapy Visit Information Visit Information Visit Type Treatment Note Visit Start Time 07:30 Visit Stop Time 08:10 Total Visit Minutes 40 Visit Number 5 Number of DATA DELIVERABLES MANAGER Visits 0 PT-OP-B Current Condition Start: 04/30/20 17:12 Freq: Status: Active Protocol: Document 05/01/20 07:27 [facility] (Rec: 05/01/20 08:15 [facility] [id number]) Current Condition History of Current Condition Onset Date 04/25/20 Current Complaints L arthroscopic lat release, open MPFL reconstruction& tibial tub osteotomy History of Current Condition Pt reports surgery went well and they used donor tendon for L arthroscopic lat release, open MPFL reconstruction& tibial tubercle osteotomy. Prior to surgery, pt subluxed his patella at least 4 times starting in 2014 when he first tore it. He had slipped on a piece of ice and leg went out to the side. Pain has not been too bad. Pt got CPM yesterday and that he will have it for 3 weeks. Pt was told to keep brace at 0 and can reposition with up to 30 deg. He changed the guaze yesterday. Follow up is next Tuesday. Was told you bear up to 50% on his LLE. Prior Treatments and Tests Tried PT and was unsuccessful Treatment Goals Patient/Caregiver Goals return to hiking, has clinical starting in a couple weeks, make sure that he can get as much movement out of his knee as possible w/goal of full range PT-OP-C Subjective Start: 04/30/20 17:12 Freq: Status: Active Protocol: Document 05/26/20 07:50 [facility] (Rec: 05/26/20 08:15 [facility] [id number]) OP-PT Subjective Patient Comments Patient Comments Pt has gotten to 108 on CPM. Notes he sees on Tuesday. Pt notes he gets a little bit of a feeling of cutting off circulation. PT-OP-F Manual Assessment Start: 04/30/20 17:12 Freq: Status: Active Protocol: Document 05/01/20 07:27 [facility] (Rec: 05/01/20 08:15 [facility] [id number]) Manual Assessments Soft Tissue Assessment Soft Tissue Mobility Assessment mild swelling on L side, Pt w/ guaze wrap so incision not assessed PT-OP-G Mobility & Gait Start: 04/30/20 17:12 Freq: Status: Active Protocol: Document 05/01/20 07:27 [facility] (Rec: 05/01/20 08:15 [facility] [id number]) OP Gait Assessment Comments Gait Comments Pt amb in locked brace NWB with B auxillary crutches PT-OP-K Range of Motion Start: 04/30/20 17:12 Freq: Status: Active Protocol: Document 05/01/20 07:27 [facility] (Rec: 05/01/20 08:15 [facility] [id number]) Knee Goniometric Range of Motion Knee Right Flexion Active (degrees) 140 Extension Active (degrees) 0 Left Flexion Active (degrees) 40 Extension Active (degrees) 8 PT-OP-M Strength Start: 04/30/20 17:12 Freq: Status: Active Protocol: Document 05/01/20 07:27 [facility] (Rec: 05/01/20 08:15 [facility] [id number]) Hip Strength Hip Manual Muscle Testing Right Flexion (L2) 5 Normal Extension (S1) 5 Normal External Rotation 5 Normal Internal Rotation 5 Normal Left Flexion (L2) 2+ Poor+ Extension (S1) 3 Fair Abduction 4- Good- Adduction 3+ Fair+ Comments rotations not tested d/t restrictions, tested hip flex w/SL brace on Knee Strength Knee Manual Muscle Testing Right Flexion (S2) 5 Normal Extension (L3) 5 Normal Left Comments n/t tested d/t restrictions Ankle/Foot Strength Ankle and Foot Manual Muscle Testing Right Dorsiflexion (L4) 5 Normal Plantarflexion (S1) 5 Normal Left Dorsiflexion (L4) 5 Normal Plantarflexion (S1) 5 Normal Comments PF tested seated B PT-OP-Q Treatments Start: 04/30/20 17:12 Freq: Status: Active Protocol: Document 05/26/20 07:50 [facility] (Rec: 05/26/20 08:15 [facility] [id number]) Gym Equipment Therapeutic Ball supine Ball Size/Color 55cm Body Position Supine Comments 1. double leg knee flex x20 2. single leg knee flex x20 L 3. bridge w/knees ext 2x10 4/ bridge w/alt leg lift x15 Therapeutic Exercises Supine Exercises SLR Side bilateral Equipment Used L1 Reps/Minutes 10 Prone Exercises knee ext Side left Reps/Minutes 5 sec x15 hip ext Prone Exercise Name alt Side bilateral Equipment Used L1 around thighs Reps/Minutes 15 Sitting Exercises flex Sitting Exercise Name seated slides on ground Side left Equipment Used scooter Reps/Minutes 10x10 sec hold Manual Therapy Treatment Soft Tissue Mobilization scar Body Location ant knee scar Mobilization Type Myofascial Release Intensity/Depth Superficial Comments only scar fully healed Self-Care/Home Management Treatment Education Other Education discussion questions to ask MD PT-OP-T Assessment and Plan Start: 04/30/20 17:12 Freq: Status: Active Protocol: Document 05/26/20 07:50 [facility] (Rec: 05/26/20 08:15 [facility] [id number]) Physical Therapy Assessment Goals LEFS Impairment 23 Short Term Goal (STG) Pt will improve score to at least 45/80 to show improved functional ability. STG Duration 06/06/20 Detention Goal (LTG) Pt will improve score to at least 65/80 to show improved functional ability. LTG Duration 08/01/20 functional activity Short Term Goal (STG) Pt will be able to squat down to corn picker objects. STG Duration 07/01/20 Detention Goal (LTG) Pt will be able to return to full work and school duties without inc pain. LTG Duration 08/01/20 gait Short Term Goal (STG) Pt will be able to amb with good mechanics with brace for up to 1/2 mile. STG Duration 06/26/20 Roller Inspector And Mender Goal (LTG) pt will be able to amb without brace with good mechancis and no pain for at least 2 miles. LTG Duration 08/01/20 strength Short Term Goal (STG) Pt will be indep with HEP STG Duration 06/01/20 Detention Goal (LTG) Pt will score 5/5 on all LE strength B to show imrpoved stability to allow full return to activity LTG Duration 08/01/20 ROM Short Term Goal (STG) Pt will improve AROM to 0-115 STG Duration 06/30/20 Detention Goal (LTG) Pt will have full ROM 0-135 without pain in order to allow him to return to typical activities including descending stairs without pain . LTG Duration 08/01/20 Assessment Summary Assessment Pt did well with all exercises and was able to get 109 degrees with ROM exercises today. He is prepared to discuss w/MD re: progressing. Physical Therapy Plan Frequency and Duration Frequency of Treatment 1-2x/week Duration of Treatment 3 months Plan of Care Start Date 05/01/20 Plan of Care End Date 08/01/20 Next Visit Focus/Plan Next Note Type Treatment Note Next Visit Plan cont to porgress as tolerated per protocol
--- NOTE | 2020-06-05 09:34 | PT.OTN ---
Current Diagnoses Recurrent dislocation of patella, left knee (06/05/20) Difficulty in walking, not elsewhere classified (06/05/20) Weakness (06/05/20) Physical Therapy Treatment Note PT-OP-A Visit Information Start: 04/30/20 17:12 Freq: Status: Active Protocol: Document 06/05/20 07:30 [facility] (Rec: 06/05/20 09:33 [facility] [id number]) Out-Patient Physical Therapy Visit Information Visit Information Visit Type Treatment Note Visit Start Time 07:31 Visit Stop Time 08:13 Total Visit Minutes 42 Visit Number 6 Number of WATER SERVICE SUPERVISOR Visits 0 PT-OP-B Current Condition Start: 04/30/20 17:12 Freq: Status: Active Protocol: Document 05/01/20 07:27 [facility] (Rec: 05/01/20 08:15 [facility] [id number]) Current Condition History of Current Condition Onset Date 04/25/20 Current Complaints L arthroscopic lat release, open MPFL reconstruction& tibial tub osteotomy History of Current Condition Pt reports surgery went well and they used donor tendon for L arthroscopic lat release, open MPFL reconstruction& tibial tubercle osteotomy. Prior to surgery, pt subluxed his patella at least 4 times starting in 2014 when he first tore it. He had slipped on a piece of ice and leg went out to the side. Pain has not been too bad. Pt got CPM yesterday and that he will have it for 3 weeks. Pt was told to keep brace at 0 and can reposition with up to 30 deg. He changed the guaze yesterday. Follow up is next Tuesday. Was told you bear up to 50% on his LLE. Prior Treatments and Tests Tried PT and was unsuccessful Treatment Goals Patient/Caregiver Goals return to hiking, has clinical starting in a couple weeks, make sure that he can get as much movement out of his knee as possible w/goal of full range PT-OP-C Subjective Start: 04/30/20 17:12 Freq: Status: Active Protocol: Document 06/05/20 07:30 [facility] (Rec: 06/05/20 09:33 [facility] [id number]) OP-PT Subjective Patient Comments Patient Comments Pt follows up again w/MD in 6 weeks. Sammy this AM: said: can WBAT and wean off crutches inc as tolerated w/brace even fully unlocked then get off crutches and start at 0-30 again and progress as tolerated to fully open. Pt got to 120 deg w/CPM prior to return of it on tuesday. pt to progress as tolerated with PT PT-OP-F Manual Assessment Start: 04/30/20 17:12 Freq: Status: Active Protocol: Document 05/01/20 07:27 [facility] (Rec: 05/01/20 08:15 [facility] [id number]) Manual Assessments Soft Tissue Assessment Soft Tissue Mobility Assessment mild swelling on L side, Pt w/ guaze wrap so incision not assessed PT-OP-G Mobility & Gait Start: 04/30/20 17:12 Freq: Status: Active Protocol: Document 05/01/20 07:27 [facility] (Rec: 05/01/20 08:15 [facility] [id number]) OP Gait Assessment Comments Gait Comments Pt amb in locked brace NWB with B auxillary crutches PT-OP-K Range of Motion Start: 04/30/20 17:12 Freq: Status: Active Protocol: Document 05/01/20 07:27 [facility] (Rec: 05/01/20 08:15 [facility] [id number]) Knee Goniometric Range of Motion Knee Right Flexion Active (degrees) 140 Extension Active (degrees) 0 Left Flexion Active (degrees) 40 Extension Active (degrees) 8 PT-OP-M Strength Start: 04/30/20 17:12 Freq: Status: Active Protocol: Document 05/01/20 07:27 [facility] (Rec: 05/01/20 08:15 [facility] [id number]) Hip Strength Hip Manual Muscle Testing Right Flexion (L2) 5 Normal Extension (S1) 5 Normal External Rotation 5 Normal Internal Rotation 5 Normal Left Flexion (L2) 2+ Poor+ Extension (S1) 3 Fair Abduction 4- Good- Adduction 3+ Fair+ Comments rotations not tested d/t restrictions, tested hip flex w/SL brace on Knee Strength Knee Manual Muscle Testing Right Flexion (S2) 5 Normal Extension (L3) 5 Normal Left Comments n/t tested d/t restrictions Ankle/Foot Strength Ankle and Foot Manual Muscle Testing Right Dorsiflexion (L4) 5 Normal Plantarflexion (S1) 5 Normal Left Dorsiflexion (L4) 5 Normal Plantarflexion (S1) 5 Normal Comments PF tested seated B PT-OP-Q Treatments Start: 04/30/20 17:12 Freq: Status: Active Protocol: Document 06/05/20 07:30 [facility] (Rec: 06/05/20 09:33 [facility] [id number]) Therapeutic Exercises Standing Exercises knee flex Side left Equipment Used rail Reps/Minutes 15 Comments comfortable range march Side bilateral Equipment Used L1 w/rail Reps/Minutes 30 hip ext Standing Exercise Name alt Side bilateral Equipment Used L1 Reps/Minutes 20 hip abd Side bilateral Equipment Used rail, L1 Reps/Minutes 20 TKE Side left Equipment Used L1 Reps/Minutes 30 sit to stand Standing Exercise Name from~ 30 in plinth Reps/Minutes 10 w/glute focus Comments brace on Gait Training Gait Activity wt shifts Comments 1. fwd wt sfhits B w/crutches 2. SLS B w/counter to work on wt accpetance Manual Therapy Treatment Soft Tissue Mobilization scar Body Location ant knee scar Mobilization Type Myofascial Release,Strumming Intensity/Depth Superficial Comments mostly ant knee scar L thigh Body Location L HS Mobilization Type Rolling Intensity/Depth Moderate Body Position Hooklying PT-OP-T Assessment and Plan Start: 04/30/20 17:12 Freq: Status: Active Protocol: Document 06/05/20 07:30 [facility] (Rec: 06/05/20 09:33 [facility] [id number]) Physical Therapy Assessment Goals LEFS Impairment 23 Short Term Goal (STG) Pt will improve score to at least 45/80 to show improved functional ability. STG Duration 06/06/20 Oxygen Tank Filler Goal (LTG) Pt will improve score to at least 65/80 to show improved functional ability. LTG Duration 08/01/20 functional activity Short Term Goal (STG) Pt will be able to squat down to seed cone picker objects. STG Duration 07/01/20 Fdc Goal (LTG) Pt will be able to return to full work and school duties without inc pain. LTG Duration 08/01/20 gait Short Term Goal (STG) Pt will be able to amb with good mechanics with brace for up to 1/2 mile. STG Duration 06/26/20 Oxygen Tank Filler Goal (LTG) pt will be able to amb without brace with good mechancis and no pain for at least 2 miles. LTG Duration 08/01/20 strength Short Term Goal (STG) Pt will be indep with HEP STG Duration 06/01/20 Fdc Goal (LTG) Pt will score 5/5 on all LE strength B to show imrpoved stability to allow full return to activity LTG Duration 08/01/20 ROM Short Term Goal (STG) Pt will improve AROM to 0-115 STG Duration 06/30/20 Oxygen Tank Filler Goal (LTG) Pt will have full ROM 0-135 without pain in order to allow him to return to typical activities including descending stairs without pain . LTG Duration 08/01/20 Assessment Summary Assessment Pt tolerated all new exercises well and came in with 105 deg of flex today which imporved to 109 after manual treatment. He had difficulty with wt acceptance of LLE but did improve ability to shift onto LLE with less UE assist with reps of exericses. Physical Therapy Plan Frequency and Duration Frequency of Treatment 1-2x/week Duration of Treatment 3 months Plan of Care Start Date 05/01/20 Plan of Care End Date 08/01/20 Next Visit Focus/Plan Next Note Type Treatment Note Next Visit Plan cont to porgress as tolerated and review exericses, try seated stepper
--- NOTE | 2020-06-12 08:20 | PT.OTN ---
Current Diagnoses Recurrent dislocation of patella, left knee (06/12/20) Difficulty in walking, not elsewhere classified (06/12/20) Weakness (06/12/20) Physical Therapy Treatment Note PT-OP-A Visit Information Start: 04/30/20 17:12 Freq: Status: Active Protocol: Document 06/12/20 07:35 [facility] (Rec: 06/12/20 08:16 [facility] [id number]) Out-Patient Physical Therapy Visit Information Visit Information Visit Type Treatment Note Visit Start Time 07:30 Visit Stop Time 08:12 Total Visit Minutes 42 Visit Number 7 Number of GREASE CUP FILLER Visits 0 PT-OP-B Current Condition Start: 04/30/20 17:12 Freq: Status: Active Protocol: Document 05/01/20 07:27 [facility] (Rec: 05/01/20 08:15 [facility] [id number]) Current Condition History of Current Condition Onset Date 04/25/20 Current Complaints L arthroscopic lat release, open MPFL reconstruction& tibial tub osteotomy History of Current Condition Pt reports surgery went well and they used donor tendon for L arthroscopic lat release, open MPFL reconstruction& tibial tubercle osteotomy. Prior to surgery, pt subluxed his patella at least 4 times starting in 2014 when he first tore it. He had slipped on a piece of ice and leg went out to the side. Pain has not been too bad. Pt got CPM yesterday and that he will have it for 3 weeks. Pt was told to keep brace at 0 and can reposition with up to 30 deg. He changed the guaze yesterday. Follow up is next Tuesday. Was told you bear up to 50% on his LLE. Prior Treatments and Tests Tried PT and was unsuccessful Treatment Goals Patient/Caregiver Goals return to hiking, has clinical starting in a couple weeks, make sure that he can get as much movement out of his knee as possible w/goal of full range PT-OP-C Subjective Start: 04/30/20 17:12 Freq: Status: Active Protocol: Document 06/12/20 07:35 [facility] (Rec: 06/12/20 08:16 [facility] [id number]) OP-PT Subjective Patient Comments Patient Comments Pt reports using 2 crutches at clinical site at 60 deg open of brace. At home, he has been doing 100 deg at home and occ not using crutches. PT-OP-F Manual Assessment Start: 04/30/20 17:12 Freq: Status: Active Protocol: Document 05/01/20 07:27 [facility] (Rec: 05/01/20 08:15 [facility] [id number]) Manual Assessments Soft Tissue Assessment Soft Tissue Mobility Assessment mild swelling on L side, Pt w/ guaze wrap so incision not assessed PT-OP-G Mobility & Gait Start: 04/30/20 17:12 Freq: Status: Active Protocol: Document 05/01/20 07:27 [facility] (Rec: 05/01/20 08:15 [facility] [id number]) OP Gait Assessment Comments Gait Comments Pt amb in locked brace NWB with B auxillary crutches PT-OP-K Range of Motion Start: 04/30/20 17:12 Freq: Status: Active Protocol: Document 05/01/20 07:27 [facility] (Rec: 05/01/20 08:15 [facility] [id number]) Knee Goniometric Range of Motion Knee Right Flexion Active (degrees) 140 Extension Active (degrees) 0 Left Flexion Active (degrees) 40 Extension Active (degrees) 8 PT-OP-M Strength Start: 04/30/20 17:12 Freq: Status: Active Protocol: Document 05/01/20 07:27 [facility] (Rec: 05/01/20 08:15 [facility] [id number]) Hip Strength Hip Manual Muscle Testing Right Flexion (L2) 5 Normal Extension (S1) 5 Normal External Rotation 5 Normal Internal Rotation 5 Normal Left Flexion (L2) 2+ Poor+ Extension (S1) 3 Fair Abduction 4- Good- Adduction 3+ Fair+ Comments rotations not tested d/t restrictions, tested hip flex w/SL brace on Knee Strength Knee Manual Muscle Testing Right Flexion (S2) 5 Normal Extension (L3) 5 Normal Left Comments n/t tested d/t restrictions Ankle/Foot Strength Ankle and Foot Manual Muscle Testing Right Dorsiflexion (L4) 5 Normal Plantarflexion (S1) 5 Normal Left Dorsiflexion (L4) 5 Normal Plantarflexion (S1) 5 Normal Comments PF tested seated B PT-OP-Q Treatments Start: 04/30/20 17:12 Freq: Status: Active Protocol: Document 06/12/20 07:35 [facility] (Rec: 06/12/20 08:16 [facility] [id number]) Cardio Equipment Recumbent Stepper (Sci-Fit) Duration (Minutes) 6 Resistance 4 Seat Position 15 Other brace on Therapeutic Exercises Standing Exercises heel raises Side bilateral Reps/Minutes 30 april Side bilateral Equipment Used L1 w/rail Reps/Minutes 20 hip ext Standing Exercise Name alt Side bilateral Equipment Used L2, rail Reps/Minutes 20 hip abd Side bilateral Equipment Used rail, L2 Reps/Minutes 20 TKE Side left Equipment Used L2 Reps/Minutes 30 Gait Training Gait Activity wt shifts Comments 1. fwd wt sfhits B w/counter prn 2. SLS B w/counter to work on wt accpetance Neuro Re-Education Treatment Other Activities PNF Details post dep L Comments 1. rhythmic initiation 2. sustained isometric of pelvis progressed to w/ irradiation w/LE pattern 3. COI progressed to w/LE pattern PT-OP-T Assessment and Plan Start: 04/30/20 17:12 Freq: Status: Active Protocol: Document 06/12/20 07:35 [facility] (Rec: 06/12/20 08:16 [facility] [id number]) Physical Therapy Assessment Goals LEFS Impairment 23 Short Term Goal (STG) Pt will improve score to at least 45/80 to show improved functional ability. STG Duration 06/06/20 Assisted Goal (LTG) Pt will improve score to at least 65/80 to show improved functional ability. LTG Duration 08/01/20 functional activity Short Term Goal (STG) Pt will be able to squat down to pickup driver objects. STG Duration 07/01/20 Consumer Relations Specialist Goal (LTG) Pt will be able to return to full work and school duties without inc pain. LTG Duration 08/01/20 gait Short Term Goal (STG) Pt will be able to amb with good mechanics with brace for up to 1/2 mile. STG Duration 06/26/20 Assisted Goal (LTG) pt will be able to amb without brace with good mechancis and no pain for at least 2 miles. LTG Duration 08/01/20 strength Short Term Goal (STG) Pt will be indep with HEP STG Duration 06/01/20 Consumer Relations Specialist Goal (LTG) Pt will score 5/5 on all LE strength B to show imrpoved stability to allow full return to activity LTG Duration 08/01/20 ROM Short Term Goal (STG) Pt will improve AROM to 0-115 STG Duration 06/30/20 Consumer Relations Specialist Goal (LTG) Pt will have full ROM 0-135 without pain in order to allow him to return to typical activities including descending stairs without pain . LTG Duration 08/01/20 Assessment Summary Assessment Pt did well with exercises from last time and was able to increase resistance today. He does require cuieng when WB on LLE for hip exercises for posture. Imrpoved wt acceptance on LLE w/PNF Physical Therapy Plan Frequency and Duration Frequency of Treatment 1-2x/week Duration of Treatment 3 months Plan of Care Start Date 05/01/20 Plan of Care End Date 08/01/20 Next Visit Focus/Plan Next Note Type Treatment Note Next Visit Plan cont to porgress as tolerated and assess tolerance to seated stepper, cont to work on gait
--- NOTE | 2020-06-19 10:21 | PT.OTN ---
Current Diagnoses Recurrent dislocation of patella, left knee (06/19/20) Difficulty in walking, not elsewhere classified (06/19/20) Weakness (06/19/20) Physical Therapy Treatment Note PT-OP-A Visit Information Start: 04/30/20 17:12 Freq: Status: Active Protocol: Document 06/19/20 09:07 [facility] (Rec: 06/19/20 10:21 [facility] [id number]) Out-Patient Physical Therapy Visit Information Visit Information Visit Type Treatment Note Visit Start Time 09:00 Visit Stop Time 09:43 Total Visit Minutes 43 Visit Number 8 Number of GATE MANAGER Visits 0 PT-OP-B Current Condition Start: 04/30/20 17:12 Freq: Status: Active Protocol: Document 05/01/20 07:27 [facility] (Rec: 05/01/20 08:15 [facility] [id number]) Current Condition History of Current Condition Onset Date 04/25/20 Current Complaints L arthroscopic lat release, open MPFL reconstruction& tibial tub osteotomy History of Current Condition Pt reports surgery went well and they used donor tendon for L arthroscopic lat release, open MPFL reconstruction& tibial tubercle osteotomy. Prior to surgery, pt subluxed his patella at least 4 times starting in 2014 when he first tore it. He had slipped on a piece of ice and leg went out to the side. Pain has not been too bad. Pt got CPM yesterday and that he will have it for 3 weeks. Pt was told to keep brace at 0 and can reposition with up to 30 deg. He changed the guaze yesterday. Follow up is next Tuesday. Was told you bear up to 50% on his LLE. Prior Treatments and Tests Tried PT and was unsuccessful Treatment Goals Patient/Caregiver Goals return to hiking, has clinical starting in a couple weeks, make sure that he can get as much movement out of his knee as possible w/goal of full range PT-OP-C Subjective Start: 04/30/20 17:12 Freq: Status: Active Protocol: Document 06/19/20 09:07 [facility] (Rec: 06/19/20 10:21 [facility] [id number]) OP-PT Subjective Patient Comments Patient Comments pt reprots he has been working on getting push off w/gait. Notes he does feel unstable when he bends his knee when walking. PT-OP-F Manual Assessment Start: 04/30/20 17:12 Freq: Status: Active Protocol: Document 05/01/20 07:27 [facility] (Rec: 05/01/20 08:15 [facility] [id number]) Manual Assessments Soft Tissue Assessment Soft Tissue Mobility Assessment mild swelling on L side, Pt w/ guaze wrap so incision not assessed PT-OP-G Mobility & Gait Start: 04/30/20 17:12 Freq: Status: Active Protocol: Document 05/01/20 07:27 [facility] (Rec: 05/01/20 08:15 [facility] [id number]) OP Gait Assessment Comments Gait Comments Pt amb in locked brace NWB with B auxillary crutches PT-OP-K Range of Motion Start: 04/30/20 17:12 Freq: Status: Active Protocol: Document 05/01/20 07:27 [facility] (Rec: 05/01/20 08:15 [facility] [id number]) Knee Goniometric Range of Motion Knee Right Flexion Active (degrees) 140 Extension Active (degrees) 0 Left Flexion Active (degrees) 40 Extension Active (degrees) 8 PT-OP-M Strength Start: 04/30/20 17:12 Freq: Status: Active Protocol: Document 05/01/20 07:27 [facility] (Rec: 05/01/20 08:15 [facility] [id number]) Hip Strength Hip Manual Muscle Testing Right Flexion (L2) 5 Normal Extension (S1) 5 Normal External Rotation 5 Normal Internal Rotation 5 Normal Left Flexion (L2) 2+ Poor+ Extension (S1) 3 Fair Abduction 4- Good- Adduction 3+ Fair+ Comments rotations not tested d/t restrictions, tested hip flex w/SL brace on Knee Strength Knee Manual Muscle Testing Right Flexion (S2) 5 Normal Extension (L3) 5 Normal Left Comments n/t tested d/t restrictions Ankle/Foot Strength Ankle and Foot Manual Muscle Testing Right Dorsiflexion (L4) 5 Normal Plantarflexion (S1) 5 Normal Left Dorsiflexion (L4) 5 Normal Plantarflexion (S1) 5 Normal Comments PF tested seated B PT-OP-Q Treatments Start: 04/30/20 17:12 Freq: Status: Active Protocol: Document 06/19/20 09:07 [facility] (Rec: 06/19/20 10:21 [facility] [id number]) Cardio Equipment Recumbent Stepper (Sci-Fit) Duration (Minutes) 6 Resistance 5 Seat Position 13 Other brace on Therapeutic Exercises Supine Exercises SLR Supine Exercise Name focus on no ext lag Side left Reps/Minutes 10 heel slides Supine Exercise Name alt APs and use of other leg out Side left Reps/Minutes 10 sec x5 Prone Exercises knee flex Prone Exercise Name w/gait belt stretch Side left Reps/Minutes 30sec x2 knee ext Prone Exercise Name TKE Side left Reps/Minutes 5 sec x10 Sitting Exercises LAQ Side left Reps/Minutes 10 sec hold x5 flex Sitting Exercise Name 1.on scooter 2.arom in air Side left Reps/Minutes 10 sec x5 ea Standing Exercises knee flex Side bilateral Reps/Minutes 15 Gait Training Gait Activity gait Description fwdwalk w/o AD brace at 60 deg wt shifts Comments 1. fwd wt sfhits B w/counter prn 2. SLS B w/counter to work on wt accpetance Manual Therapy Treatment Soft Tissue Mobilization scar Body Location all scars Mobilization Type Myofascial Release,Strumming Intensity/Depth Superficial Comments plunger & strumming & MFR w/AP PT-OP-T Assessment and Plan Start: 04/30/20 17:12 Freq: Status: Active Protocol: Document 06/19/20 09:07 [facility] (Rec: 06/19/20 10:21 [facility] [id number]) Physical Therapy Assessment Goals LEFS Impairment 23 Short Term Goal (STG) Pt will improve score to at least 45/80 to show improved functional ability. STG Duration 06/06/20 Detention Goal (LTG) Pt will improve score to at least 65/80 to show improved functional ability. LTG Duration 08/01/20 functional activity Short Term Goal (STG) Pt will be able to squat down to cotton picker objects. STG Duration 07/01/20 Detention Goal (LTG) Pt will be able to return to full work and school duties without inc pain. LTG Duration 08/01/20 gait Short Term Goal (STG) Pt will be able to amb with good mechanics with brace for up to 1/2 mile. STG Duration 06/26/20 Detention Goal (LTG) pt will be able to amb without brace with good mechancis and no pain for at least 2 miles. LTG Duration 08/01/20 strength Short Term Goal (STG) Pt will be indep with HEP STG Duration 06/01/20 Detention Goal (LTG) Pt will score 5/5 on all LE strength B to show imrpoved stability to allow full return to activity LTG Duration 08/01/20 ROM Short Term Goal (STG) Pt will improve AROM to 0-115 STG Duration 06/30/20 Director Of Anesthesia Services Goal (LTG) Pt will have full ROM 0-135 without pain in order to allow him to return to typical activities including descending stairs without pain . LTG Duration 08/01/20 Assessment Summary Assessment Pt is doing much better w/wt acceptance at this time and is able to walk well after working on wt shift w/o AD w/ brace unlocked to 60. Encouraged to do this at home and inc by 10 deg when feels like it is easy and comfortable. Pt enocuraged to use 1 crutch at clinicals and pulbic d/t other people wHe is slowly improving with strength but does still show dec quad strength Physical Therapy Plan Frequency and Duration Frequency of Treatment 1-2x/week Duration of Treatment 3 months Plan of Care Start Date 05/01/20 Plan of Care End Date 08/01/20 Next Visit Focus/Plan Next Note Type Treatment Note Next Visit Plan cont to porgress as tolerated and assess tolerance to seated stepper, cont to work on gait
--- NOTE | 2020-06-23 09:33 | PT.OTN ---
Current Diagnoses Recurrent dislocation of patella, left knee (06/23/20) Difficulty in walking, not elsewhere classified (06/23/20) Weakness (06/23/20) Physical Therapy Treatment Note PT-OP-A Visit Information Start: 04/30/20 17:12 Freq: Status: Active Protocol: Document 06/23/20 07:32 [facility] (Rec: 06/23/20 09:33 [facility] [id number]) Out-Patient Physical Therapy Visit Information Visit Information Visit Type Treatment Note Visit Start Time 07:32 Visit Stop Time 08:15 Total Visit Minutes 43 Visit Number 9 Number of BELLING MACHINE OPERATOR Visits 0 PT-OP-B Current Condition Start: 04/30/20 17:12 Freq: Status: Active Protocol: Document 05/01/20 07:27 [facility] (Rec: 05/01/20 08:15 [facility] [id number]) Current Condition History of Current Condition Onset Date 04/25/20 Current Complaints L arthroscopic lat release, open MPFL reconstruction& tibial tub osteotomy History of Current Condition Pt reports surgery went well and they used donor tendon for L arthroscopic lat release, open MPFL reconstruction& tibial tubercle osteotomy. Prior to surgery, pt subluxed his patella at least 4 times starting in 2014 when he first tore it. He had slipped on a piece of ice and leg went out to the side. Pain has not been too bad. Pt got CPM yesterday and that he will have it for 3 weeks. Pt was told to keep brace at 0 and can reposition with up to 30 deg. He changed the guaze yesterday. Follow up is next Tuesday. Was told you bear up to 50% on his LLE. Prior Treatments and Tests Tried PT and was unsuccessful Treatment Goals Patient/Caregiver Goals return to hiking, has clinical starting in a couple weeks, make sure that he can get as much movement out of his knee as possible w/goal of full range PT-OP-C Subjective Start: 04/30/20 17:12 Freq: Status: Active Protocol: Document 06/23/20 07:32 [facility] (Rec: 06/23/20 09:33 [facility] [id number]) OP-PT Subjective Patient Comments Patient Comments Reports he has been walking around at home w/brace unlocked to 80 deg without AD and feels comfortable there. PT-OP-F Manual Assessment Start: 04/30/20 17:12 Freq: Status: Active Protocol: Document 05/01/20 07:27 [facility] (Rec: 05/01/20 08:15 [facility] [id number]) Manual Assessments Soft Tissue Assessment Soft Tissue Mobility Assessment mild swelling on L side, Pt w/ guaze wrap so incision not assessed PT-OP-G Mobility & Gait Start: 04/30/20 17:12 Freq: Status: Active Protocol: Document 05/01/20 07:27 [facility] (Rec: 05/01/20 08:15 [facility] [id number]) OP Gait Assessment Comments Gait Comments Pt amb in locked brace NWB with B auxillary crutches PT-OP-K Range of Motion Start: 04/30/20 17:12 Freq: Status: Active Protocol: Document 05/01/20 07:27 [facility] (Rec: 05/01/20 08:15 [facility] [id number]) Knee Goniometric Range of Motion Knee Right Flexion Active (degrees) 140 Extension Active (degrees) 0 Left Flexion Active (degrees) 40 Extension Active (degrees) 8 PT-OP-M Strength Start: 04/30/20 17:12 Freq: Status: Active Protocol: Document 05/01/20 07:27 [facility] (Rec: 05/01/20 08:15 [facility] [id number]) Hip Strength Hip Manual Muscle Testing Right Flexion (L2) 5 Normal Extension (S1) 5 Normal External Rotation 5 Normal Internal Rotation 5 Normal Left Flexion (L2) 2+ Poor+ Extension (S1) 3 Fair Abduction 4- Good- Adduction 3+ Fair+ Comments rotations not tested d/t restrictions, tested hip flex w/SL brace on Knee Strength Knee Manual Muscle Testing Right Flexion (S2) 5 Normal Extension (L3) 5 Normal Left Comments n/t tested d/t restrictions Ankle/Foot Strength Ankle and Foot Manual Muscle Testing Right Dorsiflexion (L4) 5 Normal Plantarflexion (S1) 5 Normal Left Dorsiflexion (L4) 5 Normal Plantarflexion (S1) 5 Normal Comments PF tested seated B PT-OP-Q Treatments Start: 04/30/20 17:12 Freq: Status: Active Protocol: Document 06/23/20 07:32 [facility] (Rec: 06/23/20 09:33 [facility] [id number]) Cardio Equipment Bicycle (Upright) Duration (Minutes) 6 Seat Position 10 Other rocking then to slwoly around w/hand assist at brace to get last bit around Therapeutic Exercises Standing Exercises hip hinge Side bilateral Equipment Used yard stick on back Reps/Minutes 2 min seated then 5 min standing heel raises Standing Exercise Name SL Side bilateral Reps/Minutes 3x10 Comments brace at unlocked to 90 sit to stand Standing Exercise Name from surface 3 in higher than knee then at sup aspect of patella Side bilateral Reps/Minutes 2x12 Manual Therapy Treatment Soft Tissue Mobilization scar Body Location all scars Mobilization Type Myofascial Release,Strumming Intensity/Depth Superficial Comments plunger & strumming & MFR w/ knee flex on ball L thigh Body Location L HS &itb Mobilization Type Rolling Intensity/Depth Moderate Body Position Hooklying Comments w/knee flex on ball PT-OP-T Assessment and Plan Start: 04/30/20 17:12 Freq: Status: Active Protocol: Document 06/23/20 07:32 [facility] (Rec: 06/23/20 09:33 [facility] [id number]) Physical Therapy Assessment Goals LEFS Impairment 23 Short Term Goal (STG) Pt will improve score to at least 45/80 to show improved functional ability. STG Duration 06/06/20 Systems Admin Goal (LTG) Pt will improve score to at least 65/80 to show improved functional ability. LTG Duration 08/01/20 functional activity Short Term Goal (STG) Pt will be able to squat down to picking tech objects. STG Duration 07/01/20 Senior Care Goal (LTG) Pt will be able to return to full work and school duties without inc pain. LTG Duration 08/01/20 gait Short Term Goal (STG) Pt will be able to amb with good mechanics with brace for up to 1/2 mile. STG Duration 06/26/20 Systems Admin Goal (LTG) pt will be able to amb without brace with good mechancis and no pain for at least 2 miles. LTG Duration 08/01/20 strength Short Term Goal (STG) Pt will be indep with HEP STG Duration 06/01/20 Systems Admin Goal (LTG) Pt will score 5/5 on all LE strength B to show imrpoved stability to allow full return to activity LTG Duration 08/01/20 ROM Short Term Goal (STG) Pt will improve AROM to 0-115 STG Duration 06/30/20 Senior Care Goal (LTG) Pt will have full ROM 0-135 without pain in order to allow him to return to typical activities including descending stairs without pain . LTG Duration 08/01/20 Assessment Summary Assessment Pt started with about 115 deg flex today and was able to improve to 122 after manual treatment. Able to get around bike for last min w/less ahnd assist. He had difficulty with hip hinge until worked on int seatd then improved standing hip hinge. Physical Therapy Plan Frequency and Duration Frequency of Treatment 1-2x/week Duration of Treatment 3 months Plan of Care Start Date 05/01/20 Plan of Care End Date 08/01/20 Next Visit Focus/Plan Next Note Type Treatment Note Next Visit Plan cont to porgress as tolerated and assess tolerance to bike, cont to work on gait
--- NOTE | 2020-06-30 08:17 | PT.OTN ---
Current Diagnoses Recurrent dislocation of patella, left knee (06/30/20) Difficulty in walking, not elsewhere classified (06/30/20) Weakness (06/30/20) Physical Therapy Treatment Note PT-OP-A Visit Information Start: 04/30/20 17:12 Freq: Status: Active Protocol: Document 06/30/20 07:37 [facility] (Rec: 06/30/20 08:17 [facility] [id number]) Out-Patient Physical Therapy Visit Information Visit Information Visit Type Treatment Note Visit Start Time 07:30 Visit Stop Time 08:10 Total Visit Minutes 40 Visit Number 10 Number of BUYER TOBACCO HEAD Visits 0 PT-OP-B Current Condition Start: 04/30/20 17:12 Freq: Status: Active Protocol: Document 05/01/20 07:27 [facility] (Rec: 05/01/20 08:15 [facility] [id number]) Current Condition History of Current Condition Onset Date 04/25/20 Current Complaints L arthroscopic lat release, open MPFL reconstruction& tibial tub osteotomy History of Current Condition Pt reports surgery went well and they used donor tendon for L arthroscopic lat release, open MPFL reconstruction& tibial tubercle osteotomy. Prior to surgery, pt subluxed his patella at least 4 times starting in 2014 when he first tore it. He had slipped on a piece of ice and leg went out to the side. Pain has not been too bad. Pt got CPM yesterday and that he will have it for 3 weeks. Pt was told to keep brace at 0 and can reposition with up to 30 deg. He changed the guaze yesterday. Follow up is next Tuesday. Was told you bear up to 50% on his LLE. Prior Treatments and Tests Tried PT and was unsuccessful Treatment Goals Patient/Caregiver Goals return to hiking, has clinical starting in a couple weeks, make sure that he can get as much movement out of his knee as possible w/goal of full range PT-OP-C Subjective Start: 04/30/20 17:12 Freq: Status: Active Protocol: Document 06/30/20 07:37 [facility] (Rec: 06/30/20 08:17 [facility] [id number]) OP-PT Subjective Patient Comments Patient Comments Pt went to gym for 30 min. He did leg press on lowest weight and it felt okay. Still annoying w/bending d/t getting lat post tendon popping. PT-OP-F Manual Assessment Start: 04/30/20 17:12 Freq: Status: Active Protocol: Document 05/01/20 07:27 [facility] (Rec: 05/01/20 08:15 [facility] [id number]) Manual Assessments Soft Tissue Assessment Soft Tissue Mobility Assessment mild swelling on L side, Pt w/ guaze wrap so incision not assessed PT-OP-G Mobility & Gait Start: 04/30/20 17:12 Freq: Status: Active Protocol: Document 05/01/20 07:27 [facility] (Rec: 05/01/20 08:15 [facility] [id number]) OP Gait Assessment Comments Gait Comments Pt amb in locked brace NWB with B auxillary crutches PT-OP-K Range of Motion Start: 04/30/20 17:12 Freq: Status: Active Protocol: Document 05/01/20 07:27 [facility] (Rec: 05/01/20 08:15 [facility] [id number]) Knee Goniometric Range of Motion Knee Right Flexion Active (degrees) 140 Extension Active (degrees) 0 Left Flexion Active (degrees) 40 Extension Active (degrees) 8 PT-OP-M Strength Start: 04/30/20 17:12 Freq: Status: Active Protocol: Document 05/01/20 07:27 [facility] (Rec: 05/01/20 08:15 [facility] [id number]) Hip Strength Hip Manual Muscle Testing Right Flexion (L2) 5 Normal Extension (S1) 5 Normal External Rotation 5 Normal Internal Rotation 5 Normal Left Flexion (L2) 2+ Poor+ Extension (S1) 3 Fair Abduction 4- Good- Adduction 3+ Fair+ Comments rotations not tested d/t restrictions, tested hip flex w/SL brace on Knee Strength Knee Manual Muscle Testing Right Flexion (S2) 5 Normal Extension (L3) 5 Normal Left Comments n/t tested d/t restrictions Ankle/Foot Strength Ankle and Foot Manual Muscle Testing Right Dorsiflexion (L4) 5 Normal Plantarflexion (S1) 5 Normal Left Dorsiflexion (L4) 5 Normal Plantarflexion (S1) 5 Normal Comments PF tested seated B PT-OP-Q Treatments Start: 04/30/20 17:12 Freq: Status: Active Protocol: Document 06/30/20 07:37 [facility] (Rec: 06/30/20 08:17 [facility] [id number]) Cardio Equipment Bicycle (Upright) Duration (Minutes) 6 Resistance 3-5 Seat Position 10 Other immediately able to go around Gym Equipment Shuttle Balance red clips Comments fwd: WBOS, NBOS & staggered stance side: WBOS & NBOS Therapeutic Exercises Standing Exercises squats Standing Exercise Name mini wall w/ball Side bilateral Reps/Minutes 20 step ups Standing Exercise Name alt Side bilateral Reps/Minutes 12 Manual Therapy Treatment Soft Tissue Mobilization scar Body Location all scars Mobilization Type Myofascial Release,Strumming Intensity/Depth Superficial Comments strumming & MFR w/toe taps in knee flex Neuro Re-Education Treatment Balance Activities tilt board Details fwd/back & side/side Wt shift Comments EO/EC foam Details EC Surface blue foam Comments WBOS, NBOS, staggered stance Self-Care/Home Management Treatment Education Other Education edu to go to gym for bike, gentle leg press, 4 in step ups, mini wall squat and doing arm exercises as frequently as every other day. Encouraged to go for walks on days in between and work on SLS and other balance and hip strengthening exercises w/ tband , edu to cont to inc by 10 deg increments at a time w/ brace until fully open at all times and dec crutch use ( this week inc 10 more deg at work to 100 deg) PT-OP-T Assessment and Plan Start: 04/30/20 17:12 Freq: Status: Active Protocol: Document 06/30/20 07:37 [facility] (Rec: 06/30/20 08:17 [facility] [id number]) Physical Therapy Assessment Goals LEFS Impairment 23 Short Term Goal (STG) Pt will improve score to at least 45/80 to show improved functional ability. STG Duration 06/06/20 Correction Goal (LTG) Pt will improve score to at least 65/80 to show improved functional ability. LTG Duration 08/01/20 functional activity Short Term Goal (STG) Pt will be able to squat down to pickle processor objects. STG Duration 07/01/20 Cut Press Operator Goal (LTG) Pt will be able to return to full work and school duties without inc pain. LTG Duration 08/01/20 gait Short Term Goal (STG) Pt will be able to amb with good mechanics with brace for up to 1/2 mile. STG Duration 06/26/20 Correction Goal (LTG) pt will be able to amb without brace with good mechancis and no pain for at least 2 miles. LTG Duration 08/01/20 strength Short Term Goal (STG) Pt will be indep with HEP STG Duration 06/01/20 Correction Goal (LTG) Pt will score 5/5 on all LE strength B to show imrpoved stability to allow full return to activity LTG Duration 08/01/20 ROM Short Term Goal (STG) Pt will improve AROM to 0-115 STG Duration 06/30/20 Correction Goal (LTG) Pt will have full ROM 0-135 without pain in order to allow him to return to typical activities including descending stairs without pain . LTG Duration 08/01/20 Assessment Summary Assessment Pt was able to go fully around bike but idd have rubbing feeling of tendon. He started w/119 deg and imrpoved to 125 with manual today. He did well with all unstable surfaces but was mostly only challenged by balance baord and did very well with foam and tilt board . Physical Therapy Plan Frequency and Duration Frequency of Treatment 1-2x/week Duration of Treatment 3 months Plan of Care Start Date 05/01/20 Plan of Care End Date 08/01/20 Next Visit Focus/Plan Next Note Type Treatment Note Next Visit Plan cont to porgress as tolerated and assess tolerance to bike, cont to work on gait
--- NOTE | 2020-07-11 16:14 | PT.OTN ---
Current Diagnoses Recurrent dislocation of patella, left knee (07/11/20) Difficulty in walking, not elsewhere classified (07/11/20) Weakness (07/11/20) Physical Therapy Treatment Note PT-OP-A Visit Information Start: 04/30/20 17:12 Freq: Status: Active Protocol: Document 07/11/20 15:22 [facility] (Rec: 07/11/20 16:07 [facility] [id number]) Out-Patient Physical Therapy Visit Information Visit Information Visit Type Treatment Note Visit Start Time 15:15 Visit Stop Time 16:00 Total Visit Minutes 45 Visit Number 11 Number of ACCELERATOR TECHNICIAN Visits 1 PT-OP-B Current Condition Start: 04/30/20 17:12 Freq: Status: Active Protocol: Document 05/01/20 07:27 [facility] (Rec: 05/01/20 08:15 [facility] [id number]) Current Condition History of Current Condition Onset Date 04/25/20 Current Complaints L arthroscopic lat release, open MPFL reconstruction& tibial tub osteotomy History of Current Condition Pt reports surgery went well and they used donor tendon for L arthroscopic lat release, open MPFL reconstruction& tibial tubercle osteotomy. Prior to surgery, pt subluxed his patella at least 4 times starting in 2014 when he first tore it. He had slipped on a piece of ice and leg went out to the side. Pain has not been too bad. Pt got CPM yesterday and that he will have it for 3 weeks. Pt was told to keep brace at 0 and can reposition with up to 30 deg. He changed the guaze yesterday. Follow up is next Tuesday. Was told you bear up to 50% on his LLE. Prior Treatments and Tests Tried PT and was unsuccessful Treatment Goals Patient/Caregiver Goals return to hiking, has clinical starting in a couple weeks, make sure that he can get as much movement out of his knee as possible w/goal of full range PT-OP-C Subjective Start: 04/30/20 17:12 Freq: Status: Active Protocol: Document 07/11/20 15:22 [facility] (Rec: 07/11/20 16:07 [facility] [id number]) OP-PT Subjective Patient Comments Patient Comments Pt arrives without crutches today. He has been going to the gym and doing the leg press and biking for 10 minutes at lvl 10 PT-OP-F Manual Assessment Start: 04/30/20 17:12 Freq: Status: Active Protocol: Document 05/01/20 07:27 [facility] (Rec: 05/01/20 08:15 [facility] [id number]) Manual Assessments Soft Tissue Assessment Soft Tissue Mobility Assessment mild swelling on L side, Pt w/ guaze wrap so incision not assessed PT-OP-G Mobility & Gait Start: 04/30/20 17:12 Freq: Status: Active Protocol: Document 05/01/20 07:27 [facility] (Rec: 05/01/20 08:15 [facility] [id number]) OP Gait Assessment Comments Gait Comments Pt amb in locked brace NWB with B auxillary crutches PT-OP-K Range of Motion Start: 04/30/20 17:12 Freq: Status: Active Protocol: Document 05/01/20 07:27 [facility] (Rec: 05/01/20 08:15 [facility] [id number]) Knee Goniometric Range of Motion Knee Right Flexion Active (degrees) 140 Extension Active (degrees) 0 Left Flexion Active (degrees) 40 Extension Active (degrees) 8 PT-OP-M Strength Start: 04/30/20 17:12 Freq: Status: Active Protocol: Document 05/01/20 07:27 [facility] (Rec: 05/01/20 08:15 [facility] [id number]) Hip Strength Hip Manual Muscle Testing Right Flexion (L2) 5 Normal Extension (S1) 5 Normal External Rotation 5 Normal Internal Rotation 5 Normal Left Flexion (L2) 2+ Poor+ Extension (S1) 3 Fair Abduction 4- Good- Adduction 3+ Fair+ Comments rotations not tested d/t restrictions, tested hip flex w/SL brace on Knee Strength Knee Manual Muscle Testing Right Flexion (S2) 5 Normal Extension (L3) 5 Normal Left Comments n/t tested d/t restrictions Ankle/Foot Strength Ankle and Foot Manual Muscle Testing Right Dorsiflexion (L4) 5 Normal Plantarflexion (S1) 5 Normal Left Dorsiflexion (L4) 5 Normal Plantarflexion (S1) 5 Normal Comments PF tested seated B PT-OP-Q Treatments Start: 04/30/20 17:12 Freq: Status: Active Protocol: Document 07/11/20 15:22 [facility] (Rec: 07/11/20 16:07 [facility] [id number]) Gym Equipment Shuttle Balance red clips Comments fwd: WBOS, NBOS side: WBOS & NBOS EO/EC Therapeutic Exercises Supine Exercises heel slides Supine Exercise Name for knee flexion measurement Comments pt got to 127 at end of session without brace Sitting Exercises LAQ Side left Reps/Minutes 10 sec hold x5 Standing Exercises Step downs Standing Exercise Name controlled eccentric movement Side bilateral Equipment Used 4 step Reps/Minutes x10 ea squats Standing Exercise Name mini wall w/ball Side bilateral Reps/Minutes 2x10 step ups Standing Exercise Name alt Side bilateral Equipment Used 6 step Reps/Minutes 12 Gait Training Gait Activity Stairs Distance/Duration 2x 6 therapy stairs Comments cues to avoid abduction of LLE Manual Therapy Treatment Soft Tissue Mobilization scar Body Location all scars Mobilization Type Myofascial Release,Strumming Intensity/Depth Superficial Comments strumming & MFR w/toe taps in knee flex PT-OP-T Assessment and Plan Start: 04/30/20 17:12 Freq: Status: Active Protocol: Document 07/11/20 15:22 [facility] (Rec: 07/11/20 16:07 [facility] [id number]) Physical Therapy Assessment Goals LEFS Impairment 23 Short Term Goal (STG) Pt will improve score to at least 45/80 to show improved functional ability. STG Duration 06/06/20 Long-Term Goal (LTG) Pt will improve score to at least 65/80 to show improved functional ability. LTG Duration 08/01/20 functional activity Short Term Goal (STG) Pt will be able to squat down to orange picking supervisor objects. STG Duration 07/01/20 Long-Term Goal (LTG) Pt will be able to return to full work and school duties without inc pain. LTG Duration 08/01/20 gait Short Term Goal (STG) Pt will be able to amb with good mechanics with brace for up to 1/2 mile. STG Duration 06/26/20 Street Worker Goal (LTG) pt will be able to amb without brace with good mechancis and no pain for at least 2 miles. LTG Duration 08/01/20 strength Short Term Goal (STG) Pt will be indep with HEP STG Duration 06/01/20 Long-Term Goal (LTG) Pt will score 5/5 on all LE strength B to show imrpoved stability to allow full return to activity LTG Duration 08/01/20 ROM Short Term Goal (STG) Pt will improve AROM to 0-115 STG Duration 06/30/20 Street Worker Goal (LTG) Pt will have full ROM 0-135 without pain in order to allow him to return to typical activities including descending stairs without pain . LTG Duration 08/01/20 Assessment Summary Assessment Pt feels popping sensation the first 1-2 minutes on bike and then feels like once it warms up it gets better. Worked on ascending/descending stairs with pt needing minor cues to avoid abduction of LLE when stepping. Pt feels he needs to work on stepping down stairs; worked on eccentric lower from 4 step with pt having good control and no pain. He was able to get to 127 degrees L knee flexion at end of session. Physical Therapy Plan Frequency and Duration Frequency of Treatment 1-2x/week Duration of Treatment 3 months Plan of Care Start Date 05/01/20 Plan of Care End Date 08/01/20 Therapeutic Interventions Therapeutic Interventions Aquatic Therapy,Balance Training,Gait Training,Home Exercise Program,Joint Mobilizations,Manual Therapy, Neuromuscular Re-education, Patient/Caregiver Education, Self-Care/Home Management,Soft Tissue Mobilization,Taping, Therapeutic Activities, Therapeutic Exercises Modalities Cold Pack/Ice Massage,Electric Stimulation,Hot Packs, Infrared Therapy,Iontophoresis ,Ultrasound Next Visit Focus/Plan Next Note Type Treatment Note Next Visit Plan cont to porgress as tolerated and assess tolerance to bike, cont to work on gait
--- NOTE | 2020-07-17 12:02 | PT.OTN ---
Current Diagnoses Recurrent dislocation of patella, left knee (07/17/20) Difficulty in walking, not elsewhere classified (07/17/20) Weakness (07/17/20) Physical Therapy Treatment Note PT-OP-A Visit Information Start: 04/30/20 17:12 Freq: Status: Active Protocol: Document 07/17/20 09:08 [facility] (Rec: 07/17/20 11:32 [facility] [id number]) Out-Patient Physical Therapy Visit Information Visit Information Visit Type Progress Note Visit Start Time 09:02 Visit Stop Time 09:43 Total Visit Minutes 41 Visit Number 12 Number of CUSTOMER SUCCESS SPECIALIST Visits 0 PT-OP-B Current Condition Start: 04/30/20 17:12 Freq: Status: Active Protocol: Document 05/01/20 07:27 [facility] (Rec: 05/01/20 08:15 [facility] [id number]) Current Condition History of Current Condition Onset Date 04/25/20 Current Complaints L arthroscopic lat release, open MPFL reconstruction& tibial tub osteotomy History of Current Condition Pt reports surgery went well and they used donor tendon for L arthroscopic lat release, open MPFL reconstruction& tibial tubercle osteotomy. Prior to surgery, pt subluxed his patella at least 4 times starting in 2014 when he first tore it. He had slipped on a piece of ice and leg went out to the side. Pain has not been too bad. Pt got CPM yesterday and that he will have it for 3 weeks. Pt was told to keep brace at 0 and can reposition with up to 30 deg. He changed the guaze yesterday. Follow up is next Tuesday. Was told you bear up to 50% on his LLE. Prior Treatments and Tests Tried PT and was unsuccessful Treatment Goals Patient/Caregiver Goals return to hiking, has clinical starting in a couple weeks, make sure that he can get as much movement out of his knee as possible w/goal of full range PT-OP-C Subjective Start: 04/30/20 17:12 Freq: Status: Active Protocol: Document 07/17/20 09:08 [facility] (Rec: 07/17/20 11:32 [facility] [id number]) OP-PT Subjective Patient Comments Patient Comments Pt is going for 10 min walks and walks a lot on clinical days. He has been going to the gym to bike and do leg press. He feels tight for first 2 min then it gets better after biking. Started using the treadmill at the gym and tried some inclines. Pt sees on 07/24. Patient Reported Progress Improving Patient Questionnaires Lower Extremity Functional Scale LEFS Score 49 PT-OP-F Manual Assessment Start: 04/30/20 17:12 Freq: Status: Active Protocol: Document 05/01/20 07:27 [facility] (Rec: 05/01/20 08:15 [facility] [id number]) Manual Assessments Soft Tissue Assessment Soft Tissue Mobility Assessment mild swelling on L side, Pt w/ guaze wrap so incision not assessed PT-OP-G Mobility & Gait Start: 04/30/20 17:12 Freq: Status: Active Protocol: Document 05/01/20 07:27 [facility] (Rec: 05/01/20 08:15 [facility] [id number]) OP Gait Assessment Comments Gait Comments Pt amb in locked brace NWB with B auxillary crutches PT-OP-K Range of Motion Start: 04/30/20 17:12 Freq: Status: Active Protocol: Document 05/01/20 07:27 [facility] (Rec: 05/01/20 08:15 [facility] [id number]) Knee Goniometric Range of Motion Knee Right Flexion Active (degrees) 140 Extension Active (degrees) 0 Left Flexion Active (degrees) 40 Extension Active (degrees) 8 PT-OP-M Strength Start: 04/30/20 17:12 Freq: Status: Active Protocol: Document 07/17/20 09:08 [facility] (Rec: 07/17/20 11:32 [facility] [id number]) Hip Strength Hip Manual Muscle Testing Right Flexion (L2) 4+ Good+ Extension (S1) 5 Normal Abduction 5 Normal Adduction 5 Normal External Rotation 5 Normal Internal Rotation 5 Normal Left Flexion (L2) 4 Good Extension (S1) 4 Good Abduction 4+ Good+ Adduction 4 Good External Rotation 4 Good Internal Rotation 4 Good Knee Strength Knee Manual Muscle Testing Right Flexion (S2) 5 Normal Extension (L3) 5 Normal Left Flexion (S2) 4+ Good+ Extension (L3) 4 Good Ankle/Foot Strength Ankle and Foot Manual Muscle Testing Right Dorsiflexion (L4) 5 Normal Plantarflexion (S1) 5 Normal Left Dorsiflexion (L4) 5 Normal Plantarflexion (S1) 5 Normal Comments 20 heel raises PT-OP-Q Treatments Start: 04/30/20 17:12 Freq: Status: Active Protocol: Document 07/17/20 09:08 [facility] (Rec: 07/17/20 11:32 [facility] [id number]) Therapeutic Exercises Standing Exercises Step downs Standing Exercise Name controlled eccentric movement Side bilateral Equipment Used 5 step Reps/Minutes 2x10 ea squats Standing Exercise Name w/chair behind and rail Side bilateral Reps/Minutes 20 Comments about 60 deg step ups Side left Equipment Used 8 in Reps/Minutes 2x10 heel raises Standing Exercise Name SL Side bilateral Reps/Minutes 20 Comments brace at unlocked Manual Therapy Treatment Soft Tissue Mobilization scar Body Location all scars Mobilization Type Myofascial Release,Strumming Intensity/Depth Superficial Comments strumming & MFR w/toe taps in knee flex L thigh Body Location L ITB Mobilization Type Rolling,Strumming Intensity/Depth Moderate PT-OP-T Assessment and Plan Start: 04/30/20 17:12 Freq: Status: Active Protocol: Document 07/17/20 09:08 [facility] (Rec: 07/17/20 11:32 [facility] [id number]) Physical Therapy Assessment Goals LEFS Impairment 23 Short Term Goal (STG) Pt will improve score to at least 45/80 to show improved functional ability. STG Duration achieved Mcfp Goal (LTG) Pt will improve score to at least 65/80 to show improved functional ability. 07/17-49 LTG Duration 09/16 functional activity Short Term Goal (STG) Pt will be able to squat down to spanish moss picker objects. STG Duration achieved Business Systems Manager Goal (LTG) Pt will be able to return to full work and school duties without inc pain. 07/17-has not returned yet. LTG Duration 09/16 gait Short Term Goal (STG) Pt will be able to amb with good mechanics with brace for up to 1/2 mile. STG Duration achieved Mcfp Goal (LTG) pt will be able to amb without brace with good mechancis and no pain for at least 2 miles. LTG Duration 09/16/20 strength Short Term Goal (STG) Pt will be indep with HEP STG Duration achieved progressing as needed Business Systems Manager Goal (LTG) Pt will score 5/5 on all LE strength B to show imrpoved stability to allow full return to activity 07/17-significant progress LTG Duration 09/16 ROM Short Term Goal (STG) Pt will improve AROM to 0-115 STG Duration achieved Business Systems Manager Goal (LTG) Pt will have full ROM 0-135 without pain in order to allow him to return to typical activities including descending stairs without pain . 07/17-improving funtionality but 0-125 LTG Duration 09/16 Assessment Summary Assessment Pt is progressing well with thearpy with good improvements in strength and functional mobility. He no longer uses crutches and is able to walk with brace unlocked with good mechanics. He requires some cueing with stair decent but is showing improved stability overall. Physical Therapy Plan Frequency and Duration Frequency of Treatment 1-2x/week Duration of Treatment 3 months Plan of Care Start Date 07/17/20 Plan of Care End Date 09/16/20 Therapeutic Interventions Therapeutic Interventions Aquatic Therapy,Balance Training,Gait Training,Home Exercise Program,Joint Mobilizations,Manual Therapy, Neuromuscular Re-education, Patient/Caregiver Education, Self-Care/Home Management,Soft Tissue Mobilization,Taping, Therapeutic Activities, Therapeutic Exercises Modalities Cold Pack/Ice Massage,Electric Stimulation,Hot Packs, Infrared Therapy,Iontophoresis ,Ultrasound Next Visit Focus/Plan Next Note Type Treatment Note Next Visit Plan lunges, progress SL activities for further balance challenges
--- NOTE | 2020-07-17 12:02 | PT.OPPOC ---
Physical, Occupational & Speech Therapy At [facility] Current Diagnoses Recurrent dislocation of patella, left knee (07/17/20) Difficulty in walking, not elsewhere classified (07/17/20) Weakness (07/17/20) Visit Care Team Role Provider Type Octavio Whaley MD Family Provider Physician Primary Care Provider Specialty: Internal Medicine Address: [address] [place] [address], [facility] [address], [address] Email: [email or web address] Henrik Cabrera MD Attending Provider Non-Staff Referring Provider Specialty: Medical Address: [address] [place] [address], [id number] Email: Plan Of Care PT-OP-T Assessment and Plan Start: 04/30/20 17:12 Freq: Status: Active Protocol: Document 07/17/20 09:08 [facility] (Rec: 07/17/20 11:32 [facility] [id number]) Physical Therapy Assessment Goals LEFS Impairment 23 Short Term Goal (STG) Pt will improve score to at least 45/80 to show improved functional ability. STG Duration achieved Armament Aircraft Mechanic Goal (LTG) Pt will improve score to at least 65/80 to show improved functional ability. 07/17-49 LTG Duration 09/16 functional activity Short Term Goal (STG) Pt will be able to squat down to poultry picker objects. STG Duration achieved Armament Aircraft Mechanic Goal (LTG) Pt will be able to return to full work and school duties without inc pain. 07/17-has not returned yet. LTG Duration 09/16 gait Short Term Goal (STG) Pt will be able to amb with good mechanics with brace for up to 1/2 mile. STG Duration achieved Fpc Goal (LTG) pt will be able to amb without brace with good mechancis and no pain for at least 2 miles. LTG Duration 09/16/20 strength Short Term Goal (STG) Pt will be indep with HEP STG Duration achieved progressing as needed Fpc Goal (LTG) Pt will score 5/5 on all LE strength B to show imrpoved stability to allow full return to activity 07/17-significant progress LTG Duration 09/16 ROM Short Term Goal (STG) Pt will improve AROM to 0-115 STG Duration achieved Fpc Goal (LTG) Pt will have full ROM 0-135 without pain in order to allow him to return to typical activities including descending stairs without pain . 07/17-improving funtionality but 0-125 LTG Duration 09/16 Assessment Summary Assessment Pt is progressing well with thearpy with good improvements in strength and functional mobility. He no longer uses crutches and is able to walk with brace unlocked with good mechanics. He requires some cueing with stair decent but is showing improved stability overall. Physical Therapy Plan Frequency and Duration Frequency of Treatment 1-2x/week Duration of Treatment 3 months Plan of Care Start Date 07/17/20 Plan of Care End Date 09/16/20 Therapeutic Interventions Therapeutic Interventions Aquatic Therapy,Balance Training,Gait Training,Home Exercise Program,Joint Mobilizations,Manual Therapy, Neuromuscular Re-education, Patient/Caregiver Education, Self-Care/Home Management,Soft Tissue Mobilization,Taping, Therapeutic Activities, Therapeutic Exercises Modalities Cold Pack/Ice Massage,Electric Stimulation,Hot Packs, Infrared Therapy,Iontophoresis ,Ultrasound Next Visit Focus/Plan Next Note Type Treatment Note Next Visit Plan lunges, progress SL activities for further balance challenges Plan of Care Dates Plan of Care Start Date 07/17/20 Plan of Care End Date 09/16/20 Electronically Signed by: Frances Antonio, PT 07/17/20 3730 Please Sign and Return: I have reviewed this Plan of Care and certify that the skilled therapy services above are required to meet the patient?s needs. Physician Signature Date Printed Name and Credentials Clinical Instructor Signature Printed Name and Credentials
--- NOTE | 2020-07-24 15:28 | PT.OTN ---
Current Diagnoses Recurrent dislocation of patella, left knee (07/24/20) Difficulty in walking, not elsewhere classified (07/24/20) Weakness (07/24/20) Physical Therapy Treatment Note PT-OP-A Visit Information Start: 04/30/20 17:12 Freq: Status: Active Protocol: Document 07/24/20 14:36 [facility] (Rec: 07/24/20 15:28 [facility] [id number]) Out-Patient Physical Therapy Visit Information Visit Information Visit Type Treatment Note Visit Start Time 14:35 Visit Stop Time 15:18 Total Visit Minutes 43 Visit Number 13 Number of SKI PATROLLER Visits 0 PT-OP-B Current Condition Start: 04/30/20 17:12 Freq: Status: Active Protocol: Document 05/01/20 07:27 [facility] (Rec: 05/01/20 08:15 [facility] [id number]) Current Condition History of Current Condition Onset Date 04/25/20 Current Complaints L arthroscopic lat release, open MPFL reconstruction& tibial tub osteotomy History of Current Condition Pt reports surgery went well and they used donor tendon for L arthroscopic lat release, open MPFL reconstruction& tibial tubercle osteotomy. Prior to surgery, pt subluxed his patella at least 4 times starting in 2014 when he first tore it. He had slipped on a piece of ice and leg went out to the side. Pain has not been too bad. Pt got CPM yesterday and that he will have it for 3 weeks. Pt was told to keep brace at 0 and can reposition with up to 30 deg. He changed the guaze yesterday. Follow up is next Tuesday. Was told you bear up to 50% on his LLE. Prior Treatments and Tests Tried PT and was unsuccessful Treatment Goals Patient/Caregiver Goals return to hiking, has clinical starting in a couple weeks, make sure that he can get as much movement out of his knee as possible w/goal of full range PT-OP-C Subjective Start: 04/30/20 17:12 Freq: Status: Active Protocol: Document 07/24/20 14:36 [facility] (Rec: 07/24/20 15:28 [facility] [id number]) OP-PT Subjective Patient Comments Patient Comments Pt is cleared to go back to work August 01. Surgeon told him he could stop wearing the brace to walk in controlled environments but to wear it when he doesn't ahve contorl w /the situation. Pt reports MD said to avoid being on his knees for now. No further follow ups. Pt has to wear the brace for the next 3 months in unexpecting situation PT-OP-F Manual Assessment Start: 04/30/20 17:12 Freq: Status: Active Protocol: Document 05/01/20 07:27 [facility] (Rec: 05/01/20 08:15 [facility] [id number]) Manual Assessments Soft Tissue Assessment Soft Tissue Mobility Assessment mild swelling on L side, Pt w/ guaze wrap so incision not assessed PT-OP-G Mobility & Gait Start: 04/30/20 17:12 Freq: Status: Active Protocol: Document 05/01/20 07:27 [facility] (Rec: 05/01/20 08:15 [facility] [id number]) OP Gait Assessment Comments Gait Comments Pt amb in locked brace NWB with B auxillary crutches PT-OP-K Range of Motion Start: 04/30/20 17:12 Freq: Status: Active Protocol: Document 05/01/20 07:27 [facility] (Rec: 05/01/20 08:15 [facility] [id number]) Knee Goniometric Range of Motion Knee Right Flexion Active (degrees) 140 Extension Active (degrees) 0 Left Flexion Active (degrees) 40 Extension Active (degrees) 8 PT-OP-M Strength Start: 04/30/20 17:12 Freq: Status: Active Protocol: Document 07/17/20 09:08 [facility] (Rec: 07/17/20 11:32 [facility] [id number]) Hip Strength Hip Manual Muscle Testing Right Flexion (L2) 4+ Good+ Extension (S1) 5 Normal Abduction 5 Normal Adduction 5 Normal External Rotation 5 Normal Internal Rotation 5 Normal Left Flexion (L2) 4 Good Extension (S1) 4 Good Abduction 4+ Good+ Adduction 4 Good External Rotation 4 Good Internal Rotation 4 Good Knee Strength Knee Manual Muscle Testing Right Flexion (S2) 5 Normal Extension (L3) 5 Normal Left Flexion (S2) 4+ Good+ Extension (L3) 4 Good Ankle/Foot Strength Ankle and Foot Manual Muscle Testing Right Dorsiflexion (L4) 5 Normal Plantarflexion (S1) 5 Normal Left Dorsiflexion (L4) 5 Normal Plantarflexion (S1) 5 Normal Comments 20 heel raises PT-OP-Q Treatments Start: 04/30/20 17:12 Freq: Status: Active Protocol: Document 07/24/20 14:36 [facility] (Rec: 07/24/20 15:28 [facility] [id number]) Cardio Equipment Elliptical Duration (Minutes) 5 Resistance 10 Gym Equipment Shuttle Recovery Unilateral Squats Details B Resistance 50# Shuttle Recovery Platform Stable Reps/Time 15 Shuttle Balance red clips Comments fwd: WBOS, NBOS, staggered stance side: WBOS & NBOS EO/EC Therapeutic Exercises Standing Exercises side step Side bilateral Equipment Used yellow tband Reps/Minutes 20ftx2 lunge Side bilateral Reps/Minutes 8 Comments cues for knee position squats Standing Exercise Name w/chair behind and rail Side bilateral Reps/Minutes 20 Comments about 70-80 deg hip hinge Standing Exercise Name SL Side bilateral Reps/Minutes 12 heel raises Standing Exercise Name SL Side bilateral Reps/Minutes 20 Comments brace at unlocked Manual Therapy Treatment Soft Tissue Mobilization scar Body Location all scars Mobilization Type Myofascial Release,Strumming Intensity/Depth Superficial Comments strumming & MFR w/toe taps in knee flex Joint Mobilizations tibfem Joint PA FM Grade II Neuro Re-Education Treatment Balance Activities SLS Details Y reaches B PT-OP-T Assessment and Plan Start: 04/30/20 17:12 Freq: Status: Active Protocol: Document 07/24/20 14:36 [facility] (Rec: 07/24/20 15:28 [facility] [id number]) Physical Therapy Assessment Goals LEFS Impairment 23 Short Term Goal (STG) Pt will improve score to at least 45/80 to show improved functional ability. STG Duration achieved Retirement Goal (LTG) Pt will improve score to at least 65/80 to show improved functional ability. 10-49 LTG Duration 8/10 functional activity Short Term Goal (STG) Pt will be able to squat down to fruit picker objects. STG Duration achieved Retirement Goal (LTG) Pt will be able to return to full work and school duties without inc pain. 07/17-has not returned yet. LTG Duration 8/10 gait Short Term Goal (STG) Pt will be able to amb with good mechanics with brace for up to 1/2 mile. STG Duration achieved Film Critic Goal (LTG) pt will be able to amb without brace with good mechancis and no pain for at least 2 miles. LTG Duration 09/16/20 strength Short Term Goal (STG) Pt will be indep with HEP STG Duration achieved progressing as needed Retirement Goal (LTG) Pt will score 5/5 on all LE strength B to show imrpoved stability to allow full return to activity 07/17-significant progress LTG Duration 09/16 ROM Short Term Goal (STG) Pt will improve AROM to 0-115 STG Duration achieved Retirement Goal (LTG) Pt will have full ROM 0-135 without pain in order to allow him to return to typical activities including descending stairs without pain . 07/17-improving funtionality but 0-125 LTG Duration 09/16 Assessment Summary Assessment Pt fatigued significantly w/ exercises and LLE was shakeyw ith exercises. he was most challenged w/SL activities and will requrie further work with stability Physical Therapy Plan Frequency and Duration Frequency of Treatment 1-2x/week Duration of Treatment 3 months Plan of Care Start Date 07/17/20 Plan of Care End Date 09/16/20 Next Visit Focus/Plan Next Note Type Treatment Note Next Visit Plan review lunges, progress SL activities for further balance challenges
--- NOTE | 2020-07-29 08:16 | PT.OTN ---
Current Diagnoses Recurrent dislocation of patella, left knee (07/29/20) Difficulty in walking, not elsewhere classified (07/29/20) Weakness (07/29/20) Physical Therapy Treatment Note PT-OP-A Visit Information Start: 04/30/20 17:12 Freq: Status: Active Protocol: Document 07/29/20 07:30 [facility] (Rec: 07/29/20 08:16 [facility] [id number]) Out-Patient Physical Therapy Visit Information Visit Information Visit Type Treatment Note Visit Start Time 07:30 Visit Stop Time 08:13 Total Visit Minutes 43 Visit Number 14 Number of SHINGLES ROOFER Visits 0 PT-OP-B Current Condition Start: 04/30/20 17:12 Freq: Status: Active Protocol: Document 05/01/20 07:27 [facility] (Rec: 05/01/20 08:15 [facility] [id number]) Current Condition History of Current Condition Onset Date 04/25/20 Current Complaints L arthroscopic lat release, open MPFL reconstruction& tibial tub osteotomy History of Current Condition Pt reports surgery went well and they used donor tendon for L arthroscopic lat release, open MPFL reconstruction& tibial tubercle osteotomy. Prior to surgery, pt subluxed his patella at least 4 times starting in 2014 when he first tore it. He had slipped on a piece of ice and leg went out to the side. Pain has not been too bad. Pt got CPM yesterday and that he will have it for 3 weeks. Pt was told to keep brace at 0 and can reposition with up to 30 deg. He changed the guaze yesterday. Follow up is next Tuesday. Was told you bear up to 50% on his LLE. Prior Treatments and Tests Tried PT and was unsuccessful Treatment Goals Patient/Caregiver Goals return to hiking, has clinical starting in a couple weeks, make sure that he can get as much movement out of his knee as possible w/goal of full range PT-OP-C Subjective Start: 04/30/20 17:12 Freq: Status: Active Protocol: Document 07/29/20 07:30 [facility] (Rec: 07/29/20 08:16 [facility] [id number]) OP-PT Subjective Patient Comments Patient Comments Pt reports going to the gym and doing well. NOtes he was just fatigued after last session. [place] the [place] this [place]. Had a lot of stairs. up was easy, down is harder PT-OP-F Manual Assessment Start: 04/30/20 17:12 Freq: Status: Active Protocol: Document 05/01/20 07:27 [facility] (Rec: 05/01/20 08:15 [facility] [id number]) Manual Assessments Soft Tissue Assessment Soft Tissue Mobility Assessment mild swelling on L side, Pt w/ guaze wrap so incision not assessed PT-OP-G Mobility & Gait Start: 04/30/20 17:12 Freq: Status: Active Protocol: Document 05/01/20 07:27 [facility] (Rec: 05/01/20 08:15 [facility] [id number]) OP Gait Assessment Comments Gait Comments Pt amb in locked brace NWB with B auxillary crutches PT-OP-K Range of Motion Start: 04/30/20 17:12 Freq: Status: Active Protocol: Document 05/01/20 07:27 [facility] (Rec: 05/01/20 08:15 [facility] [id number]) Knee Goniometric Range of Motion Knee Right Flexion Active (degrees) 140 Extension Active (degrees) 0 Left Flexion Active (degrees) 40 Extension Active (degrees) 8 PT-OP-M Strength Start: 04/30/20 17:12 Freq: Status: Active Protocol: Document 07/17/20 09:08 [facility] (Rec: 07/17/20 11:32 [facility] [id number]) Hip Strength Hip Manual Muscle Testing Right Flexion (L2) 4+ Good+ Extension (S1) 5 Normal Abduction 5 Normal Adduction 5 Normal External Rotation 5 Normal Internal Rotation 5 Normal Left Flexion (L2) 4 Good Extension (S1) 4 Good Abduction 4+ Good+ Adduction 4 Good External Rotation 4 Good Internal Rotation 4 Good Knee Strength Knee Manual Muscle Testing Right Flexion (S2) 5 Normal Extension (L3) 5 Normal Left Flexion (S2) 4+ Good+ Extension (L3) 4 Good Ankle/Foot Strength Ankle and Foot Manual Muscle Testing Right Dorsiflexion (L4) 5 Normal Plantarflexion (S1) 5 Normal Left Dorsiflexion (L4) 5 Normal Plantarflexion (S1) 5 Normal Comments 20 heel raises PT-OP-Q Treatments Start: 04/30/20 17:12 Freq: Status: Active Protocol: Document 07/29/20 07:30 [facility] (Rec: 07/29/20 08:16 [facility] [id number]) Cardio Equipment Elliptical Duration (Minutes) 5 Resistance 7 Gym Equipment Shuttle Balance red clips Comments fwd: WBOS, NBOS, staggered stance side: WBOS & NBOS EO/EC Therapeutic Exercises Standing Exercises side step Side bilateral Equipment Used yellow tband Reps/Minutes 20ftx2 lunge Standing Exercise Name fwd & side Side bilateral Reps/Minutes 10 Comments cues for knee position Step downs Standing Exercise Name controlled eccentric movement Side bilateral Equipment Used 5 step Reps/Minutes 15 squats Standing Exercise Name w/chair behind Side bilateral Reps/Minutes 2x10 Comments about 80 deg step ups Side bilateral Equipment Used 8 in Reps/Minutes 15 Manual Therapy Treatment Soft Tissue Mobilization scar Body Location all scars Mobilization Type Myofascial Release,Strumming Intensity/Depth Superficial Comments strumming & MFR w/toe taps in knee flex Joint Mobilizations patellofemoral Joint L Direction sup, inf, med Neuro Re-Education Treatment Balance Activities SLS Details B Comments 1. trials focus on no hip drop 2.Y reaches B 3. foam 4. EC PT-OP-T Assessment and Plan Start: 04/30/20 17:12 Freq: Status: Active Protocol: Document 07/29/20 07:30 [facility] (Rec: 07/29/20 08:16 [facility] [id number]) Physical Therapy Assessment Goals LEFS Impairment 23 Short Term Goal (STG) Pt will improve score to at least 45/80 to show improved functional ability. STG Duration achieved Packaging Coordinator Goal (LTG) Pt will improve score to at least 65/80 to show improved functional ability. 07/17-49 LTG Duration 8 functional activity Short Term Goal (STG) Pt will be able to squat down to meat pickler objects. STG Duration achieved Packaging Coordinator Goal (LTG) Pt will be able to return to full work and school duties without inc pain. 07/17-has not returned yet. LTG Duration 8 gait Short Term Goal (STG) Pt will be able to amb with good mechanics with brace for up to 1/2 mile. STG Duration achieved Packaging Coordinator Goal (LTG) pt will be able to amb without brace with good mechancis and no pain for at least 2 miles. LTG Duration 09/16/20 strength Short Term Goal (STG) Pt will be indep with HEP STG Duration achieved progressing as needed [facility] Goal (LTG) Pt will score 5/5 on all LE strength B to show imrpoved stability to allow full return to activity 07/17-significant progress LTG Duration 09/16 ROM Short Term Goal (STG) Pt will improve AROM to 0-115 STG Duration achieved [facility] Goal (LTG) Pt will have full ROM 0-135 without pain in order to allow him to return to typical activities including descending stairs without pain . 07/17-improving funtionality but 0-125 LTG Duration 09/16 Assessment Summary Assessment Pt did well with exercises today with less fatigue. He is getting lower with squats and lunges but does requre cuieng when LLE is back to bend the knee vs lunging fwd. Balance is improving but is challenged by SL activities. Physical Therapy Plan Frequency and Duration Frequency of Treatment 1-2x/week Duration of Treatment 3 months Plan of Care Start Date 07/17/20 Plan of Care End Date 09/16/20 Next Visit Focus/Plan Next Note Type Treatment Note Next Visit Plan cont to progress SL activities & work on lunge/squat ability
--- NOTE | 2020-08-13 08:29 | PT.OTN ---
Current Diagnoses Recurrent dislocation of patella, left knee (08/13/20) Difficulty in walking, not elsewhere classified (08/13/20) Weakness (08/13/20) Physical Therapy Treatment Note PT-OP-A Visit Information Start: 04/30/20 17:12 Freq: Status: Active Protocol: Document 08/13/20 07:32 [facility] (Rec: 08/13/20 08:28 [facility] [id number]) Out-Patient Physical Therapy Visit Information Visit Information Visit Type Treatment Note Visit Start Time 07:30 Visit Stop Time 08:16 Total Visit Minutes 46 Visit Number 15 Number of MOTOR COACH CHAUFFEUR Visits 0 PT-OP-B Current Condition Start: 04/30/20 17:12 Freq: Status: Active Protocol: Document 05/01/20 07:27 [facility] (Rec: 05/01/20 08:15 [facility] [id number]) Current Condition History of Current Condition Onset Date 04/25/20 Current Complaints L arthroscopic lat release, open MPFL reconstruction& tibial tub osteotomy History of Current Condition Pt reports surgery went well and they used donor tendon for L arthroscopic lat release, open MPFL reconstruction& tibial tubercle osteotomy. Prior to surgery, pt subluxed his patella at least 4 times starting in 2014 when he first tore it. He had slipped on a piece of ice and leg went out to the side. Pain has not been too bad. Pt got CPM yesterday and that he will have it for 3 weeks. Pt was told to keep brace at 0 and can reposition with up to 30 deg. He changed the guaze yesterday. Follow up is next Tuesday. Was told you bear up to 50% on his LLE. Prior Treatments and Tests Tried PT and was unsuccessful Treatment Goals Patient/Caregiver Goals return to hiking, has clinical starting in a couple weeks, make sure that he can get as much movement out of his knee as possible w/goal of full range PT-OP-C Subjective Start: 04/30/20 17:12 Freq: Status: Active Protocol: Document 08/13/20 07:32 [facility] (Rec: 08/13/20 08:28 [facility] [id number]) OP-PT Subjective Patient Comments Patient Comments Pt reports has been working and it has been going well. 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 Notes he hasn't worked out this weekb ut did last week. Notes being stiff after 12 hour shift. Pt has been on his knees a bit this weekend and puts garden foam down to work on his boat. He sees why surgeon said it would be difficult to be on his knees. Patient Reported Progress Improving PT-OP-F Manual Assessment Start: 04/30/20 17:12 Freq: Status: Active Protocol: Document 05/01/20 07:27 [facility] (Rec: 05/01/20 08:15 [facility] [id number]) Manual Assessments Soft Tissue Assessment Soft Tissue Mobility Assessment mild swelling on L side, Pt w/ guaze wrap so incision not assessed PT-OP-G Mobility & Gait Start: 04/30/20 17:12 Freq: Status: Active Protocol: Document 05/01/20 07:27 [facility] (Rec: 05/01/20 08:15 [facility] [id number]) OP Gait Assessment Comments Gait Comments Pt amb in locked brace NWB with B auxillary crutches PT-OP-K Range of Motion Start: 04/30/20 17:12 Freq: Status: Active Protocol: Document 05/01/20 07:27 [facility] (Rec: 05/01/20 08:15 [facility] [id number]) Knee Goniometric Range of Motion Knee Right Flexion Active (degrees) 140 Extension Active (degrees) 0 Left Flexion Active (degrees) 40 Extension Active (degrees) 8 PT-OP-M Strength Start: 04/30/20 17:12 Freq: Status: Active Protocol: Document 07/17/20 09:08 [facility] (Rec: 07/17/20 11:32 [facility] [id number]) Hip Strength Hip Manual Muscle Testing Right Flexion (L2) 4+ Good+ Extension (S1) 5 Normal Abduction 5 Normal Adduction 5 Normal External Rotation 5 Normal Internal Rotation 5 Normal Left Flexion (L2) 4 Good Extension (S1) 4 Good Abduction 4+ Good+ Adduction 4 Good External Rotation 4 Good Internal Rotation 4 Good Knee Strength Knee Manual Muscle Testing Right Flexion (S2) 5 Normal Extension (L3) 5 Normal Left Flexion (S2) 4+ Good+ Extension (L3) 4 Good Ankle/Foot Strength Ankle and Foot Manual Muscle Testing Right Dorsiflexion (L4) 5 Normal Plantarflexion (S1) 5 Normal Left Dorsiflexion (L4) 5 Normal Plantarflexion (S1) 5 Normal Comments 20 heel raises PT-OP-Q Treatments Start: 04/30/20 17:12 Freq: Status: Active Protocol: Document 08/13/20 07:32 [facility] (Rec: 08/13/20 08:28 [facility] [id number]) Cardio Equipment Elliptical Duration (Minutes) 6 Resistance 6 Gym Equipment Shuttle Balance red clips Comments fwd: WBOS, NBOS, staggered stance side: WBOS & NBOS EO/EC Therapeutic Ball supine Ball Size/Color 55 CM Body Position Supine Reps/Duration 10 Comments bridge w/HS curl Sport Cord step up Exercise Details 8 in w/march Cord/Resistance green Reps/Duration 12 Therapeutic Exercises Standing Exercises Step downs Standing Exercise Name controlled eccentric movement Side bilateral Equipment Used 5 step Reps/Minutes 12 Comments mirror squats Standing Exercise Name SL holding pole mini Side bilateral Reps/Minutes 8 hip hinge Standing Exercise Name SL Side bilateral Reps/Minutes 12 Manual Therapy Treatment Soft Tissue Mobilization scar Body Location all scars Mobilization Type Myofascial Release,Strumming Intensity/Depth Superficial Comments strumming & MFR w/toe taps in knee flex Joint Mobilizations tibfem Joint PA FM Grade II Neuro Re-Education Treatment Balance Activities SLS Details B Comments 1. trials focus on no hip drop 2.Y reaches B 3. foam 4. EC PT-OP-T Assessment and Plan Start: 04/30/20 17:12 Freq: Status: Active Protocol: Document 08/13/20 07:32 [facility] (Rec: 08/13/20 08:28 [facility] [id number]) Physical Therapy Assessment Goals LEFS Impairment 23 Short Term Goal (STG) Pt will improve score to at least 45/80 to show improved functional ability. STG Duration achieved Chemistry Tutor Goal (LTG) Pt will improve score to at least 65/80 to show improved functional ability. 6/10-49 LTG Duration 8/10 functional activity Short Term Goal (STG) Pt will be able to squat down to machine pecan picker objects. STG Duration achieved Chemistry Tutor Goal (LTG) Pt will be able to return to full work and school duties without inc pain. 6/10-has not returned yet. LTG Duration 8/10 gait Short Term Goal (STG) Pt will be able to amb with good mechanics with brace for up to 1/2 mile. STG Duration achieved Chemistry Tutor Goal (LTG) pt will be able to amb without brace with good mechancis and no pain for at least 2 miles. LTG Duration 09/16/20 strength Short Term Goal (STG) Pt will be indep with HEP STG Duration achieved progressing as needed Assisted Goal (LTG) Pt will score 5/5 on all LE strength B to show imrpoved stability to allow full return to activity 07/17-significant progress LTG Duration 09/16 ROM Short Term Goal (STG) Pt will improve AROM to 0-115 STG Duration achieved Assisted Goal (LTG) Pt will have full ROM 0-135 without pain in order to allow him to return to typical activities including descending stairs without pain . 07/17-improving funtionality but 0-125 LTG Duration 09/16 Assessment Summary Assessment Pt did well with better with exercises today and nees less cueing but still cueing for knee postion especialy for SL activties. He still fatigues quicker w/LLE vs R. 130 deg ROM today Physical Therapy Plan Frequency and Duration Frequency of Treatment 1-2x/week Duration of Treatment 3 months Plan of Care Start Date 07/17/20 Plan of Care End Date 09/16/20 Next Visit Focus/Plan Next Note Type Treatment Note Next Visit Plan cont to progress SL activities & work on lunge/squat ability
--- NOTE | 2020-08-18 08:15 | PT.OTN ---
Current Diagnoses Recurrent dislocation of patella, left knee (08/18/20) Difficulty in walking, not elsewhere classified (08/18/20) Weakness (08/18/20) Physical Therapy Treatment Note PT-OP-A Visit Information Start: 04/30/20 17:12 Freq: Status: Active Protocol: Document 08/18/20 07:32 [facility] (Rec: 08/18/20 08:15 [facility] [id number]) Out-Patient Physical Therapy Visit Information Visit Information Visit Type Treatment Note Visit Start Time 07:31 Visit Stop Time 08:12 Total Visit Minutes 41 Visit Number 16 Number of MARKET RESEARCH SENIOR PROJECT MANAGER Visits 0 PT-OP-B Current Condition Start: 04/30/20 17:12 Freq: Status: Active Protocol: Document 05/01/20 07:27 [facility] (Rec: 05/01/20 08:15 [facility] [id number]) Current Condition History of Current Condition Onset Date 04/25/20 Current Complaints L arthroscopic lat release, open MPFL reconstruction& tibial tub osteotomy History of Current Condition Pt reports surgery went well and they used donor tendon for L arthroscopic lat release, open MPFL reconstruction& tibial tubercle osteotomy. Prior to surgery, pt subluxed his patella at least 4 times starting in 2014 when he first tore it. He had slipped on a piece of ice and leg went out to the side. Pain has not been too bad. Pt got CPM yesterday and that he will have it for 3 weeks. Pt was told to keep brace at 0 and can reposition with up to 30 deg. He changed the guaze yesterday. Follow up is next Tuesday. Was told you bear up to 50% on his LLE. Prior Treatments and Tests Tried PT and was unsuccessful Treatment Goals Patient/Caregiver Goals return to hiking, has clinical starting in a couple weeks, make sure that he can get as much movement out of his knee as possible w/goal of full range PT-OP-C Subjective Start: 04/30/20 17:12 Freq: Status: Active Protocol: Document 08/18/20 07:32 [facility] (Rec: 08/18/20 08:15 [facility] [id number]) OP-PT Subjective Patient Comments Patient Comments Pt reports work went well this past week. He is still a little stiff after work but pain isn't too bad. Notes he hasn't been back tot the gym but he has been doing a lot of functional motion and kneeling etc d/t working on the boat. He has been walking too. PT-OP-F Manual Assessment Start: 04/30/20 17:12 Freq: Status: Active Protocol: Document 05/01/20 07:27 [facility] (Rec: 05/01/20 08:15 [facility] [id number]) Manual Assessments Soft Tissue Assessment Soft Tissue Mobility Assessment mild swelling on L side, Pt w/ guaze wrap so incision not assessed PT-OP-G Mobility & Gait Start: 04/30/20 17:12 Freq: Status: Active Protocol: Document 05/01/20 07:27 [facility] (Rec: 05/01/20 08:15 [facility] [id number]) OP Gait Assessment Comments Gait Comments Pt amb in locked brace NWB with B auxillary crutches PT-OP-K Range of Motion Start: 04/30/20 17:12 Freq: Status: Active Protocol: Document 05/01/20 07:27 [facility] (Rec: 05/01/20 08:15 [facility] [id number]) Knee Goniometric Range of Motion Knee Right Flexion Active (degrees) 140 Extension Active (degrees) 0 Left Flexion Active (degrees) 40 Extension Active (degrees) 8 PT-OP-M Strength Start: 04/30/20 17:12 Freq: Status: Active Protocol: Document 07/17/20 09:08 [facility] (Rec: 07/17/20 11:32 [facility] [id number]) Hip Strength Hip Manual Muscle Testing Right Flexion (L2) 4+ Good+ Extension (S1) 5 Normal Abduction 5 Normal Adduction 5 Normal External Rotation 5 Normal Internal Rotation 5 Normal Left Flexion (L2) 4 Good Extension (S1) 4 Good Abduction 4+ Good+ Adduction 4 Good External Rotation 4 Good Internal Rotation 4 Good Knee Strength Knee Manual Muscle Testing Right Flexion (S2) 5 Normal Extension (L3) 5 Normal Left Flexion (S2) 4+ Good+ Extension (L3) 4 Good Ankle/Foot Strength Ankle and Foot Manual Muscle Testing Right Dorsiflexion (L4) 5 Normal Plantarflexion (S1) 5 Normal Left Dorsiflexion (L4) 5 Normal Plantarflexion (S1) 5 Normal Comments 20 heel raises PT-OP-Q Treatments Start: 04/30/20 17:12 Freq: Status: Active Protocol: Document 08/18/20 07:32 [facility] (Rec: 08/18/20 08:15 [facility] [id number]) Cardio Equipment Elliptical Duration (Minutes) 5 Resistance 7 Gym Equipment Shuttle Balance red clips Comments fwd: WBOS, NBOS, staggered stance side: WBOS & NBOS EO/EC Therapeutic Ball supine Ball Size/Color 55 CM Body Position Supine Reps/Duration 10 Comments bridge w/HS curl Sport Cord step up Exercise Details 8 in w/march Cord/Resistance green Reps/Duration 12 Therapeutic Exercises Standing Exercises side step Standing Exercise Name in squat position Side bilateral Equipment Used yellow tband Reps/Minutes 20ft lunge Standing Exercise Name fwd & side Side bilateral Reps/Minutes 10 Comments cues for knee position Step downs Standing Exercise Name controlled eccentric movement Side bilateral Equipment Used 5 step Reps/Minutes 12 Comments mirror squats Standing Exercise Name SL holding pole mini Side bilateral Reps/Minutes 8 hip hinge Standing Exercise Name SL Side bilateral Equipment Used 5# B Reps/Minutes 12 Manual Therapy Treatment Soft Tissue Mobilization scar Body Location all scars Mobilization Type Myofascial Release,Strumming Intensity/Depth Superficial Comments strumming & MFR w/toe taps in knee flex Neuro Re-Education Treatment Balance Activities SLS Details B Comments 1. firm w/ball toss 2.Y reaches B 3. foam 4. EC PT-OP-T Assessment and Plan Start: 04/30/20 17:12 Freq: Status: Active Protocol: Document 08/18/20 07:32 [facility] (Rec: 08/18/20 08:15 [facility] [id number]) Physical Therapy Assessment Goals LEFS Impairment 23 Short Term Goal (STG) Pt will improve score to at least 45/80 to show improved functional ability. STG Duration achieved Half-Way Goal (LTG) Pt will improve score to at least 65/80 to show improved functional ability. 6/10-49 LTG Duration 8/10 functional activity Short Term Goal (STG) Pt will be able to squat down to corn picker objects. STG Duration achieved Half-Way Goal (LTG) Pt will be able to return to full work and school duties without inc pain. 10-has not returned yet. LTG Duration 8/10 gait Short Term Goal (STG) Pt will be able to amb with good mechanics with brace for up to 1/2 mile. STG Duration achieved Half-Way Goal (LTG) pt will be able to amb without brace with good mechancis and no pain for at least 2 miles. LTG Duration 09/16/20 strength Short Term Goal (STG) Pt will be indep with HEP STG Duration achieved progressing as needed Half-Way Goal (LTG) Pt will score 5/5 on all LE strength B to show imrpoved stability to allow full return to activity 07/17-significant progress LTG Duration 09/16 ROM Short Term Goal (STG) Pt will improve AROM to 0-115 STG Duration achieved Half-Way Goal (LTG) Pt will have full ROM 0-135 without pain in order to allow him to return to typical activities including descending stairs without pain . 07/17-improving funtionality but 0-125 LTG Duration 09/16 Assessment Summary Assessment Pt is improving with SL activities and did show better balance today but did still have trouble w/uneven surfaces in SLS. Knee flex today is 132 with greater ease of motion. Physical Therapy Plan Frequency and Duration Frequency of Treatment 1-2x/week Duration of Treatment 3 months Plan of Care Start Date 07/17/20 Plan of Care End Date 09/16/20 Next Visit Focus/Plan Next Note Type Treatment Note Next Visit Plan cont to progress SL activities & work on lunge/squat ability
--- NOTE | 2020-09-10 09:02 | PT.OTN ---
Current Diagnoses Recurrent dislocation of patella, left knee (09/10/20) Difficulty in walking, not elsewhere classified (09/10/20) Weakness (09/10/20) Physical Therapy Treatment Note PT-OP-A Visit Information Start: 04/30/20 17:12 Freq: Status: Active Protocol: Document 09/10/20 07:36 [facility] (Rec: 09/10/20 09:01 [facility] [id number]) Out-Patient Physical Therapy Visit Information Visit Information Visit Type Progress Note Visit Start Time 07:31 Visit Stop Time 08:11 Total Visit Minutes 40 Visit Number 17 Number of PHARMACEUTICAL SALESPERSON Visits 0 PT-OP-B Current Condition Start: 04/30/20 17:12 Freq: Status: Active Protocol: Document 05/01/20 07:27 [facility] (Rec: 05/01/20 08:15 [facility] [id number]) Current Condition History of Current Condition Onset Date 04/25/20 Current Complaints L arthroscopic lat release, open MPFL reconstruction& tibial tub osteotomy History of Current Condition Pt reports surgery went well and they used donor tendon for L arthroscopic lat release, open MPFL reconstruction& tibial tubercle osteotomy. Prior to surgery, pt subluxed his patella at least 4 times starting in 2014 when he first tore it. He had slipped on a piece of ice and leg went out to the side. Pain has not been too bad. Pt got CPM yesterday and that he will have it for 3 weeks. Pt was told to keep brace at 0 and can reposition with up to 30 deg. He changed the guaze yesterday. Follow up is next Tuesday. Was told you bear up to 50% on his LLE. Prior Treatments and Tests Tried PT and was unsuccessful Treatment Goals Patient/Caregiver Goals return to hiking, has clinical starting in a couple weeks, make sure that he can get as much movement out of his knee as possible w/goal of full range PT-OP-C Subjective Start: 04/30/20 17:12 Freq: Status: Active Protocol: Document 09/10/20 07:36 [facility] (Rec: 09/10/20 09:01 [facility] [id number]) OP-PT Subjective Patient Comments Patient Comments Pt reprots doing long walk and that felt fine along w/beach walks and walks up ambulance hill without issue. Has not been on trail. Still sore at end of shift at 2/10 and recovers by the next day. Pt reports still uncomfortable at end range flex Patient Reported Progress Improving PT-OP-F Manual Assessment Start: 04/30/20 17:12 Freq: Status: Active Protocol: Document 05/01/20 07:27 [facility] (Rec: 05/01/20 08:15 [facility] [id number]) Manual Assessments Soft Tissue Assessment Soft Tissue Mobility Assessment mild swelling on L side, Pt w/ guaze wrap so incision not assessed PT-OP-G Mobility & Gait Start: 04/30/20 17:12 Freq: Status: Active Protocol: Document 05/01/20 07:27 [facility] (Rec: 05/01/20 08:15 [facility] [id number]) OP Gait Assessment Comments Gait Comments Pt amb in locked brace NWB with B auxillary crutches PT-OP-K Range of Motion Start: 04/30/20 17:12 Freq: Status: Active Protocol: Document 09/10/20 07:36 [facility] (Rec: 09/10/20 09:01 [facility] [id number]) Knee Goniometric Range of Motion Knee Left Flexion Active (degrees) 135 Extension Active (degrees) 0 PT-OP-M Strength Start: 04/30/20 17:12 Freq: Status: Active Protocol: Document 09/10/20 07:36 [facility] (Rec: 09/10/20 09:01 [facility] [id number]) Hip Strength Hip Manual Muscle Testing Right Flexion (L2) 5 Normal Extension (S1) 5 Normal Abduction 5 Normal Adduction 5 Normal External Rotation 5 Normal Internal Rotation 5 Normal Left Flexion (L2) 5 Normal Extension (S1) 5 Normal Abduction 5 Normal Adduction 5 Normal External Rotation 5 Normal Internal Rotation 5 Normal Knee Strength Knee Manual Muscle Testing Right Flexion (S2) 5 Normal Extension (L3) 5 Normal Left Flexion (S2) 5 Normal Extension (L3) 5 Normal Ankle/Foot Strength Ankle and Foot Manual Muscle Testing Right Dorsiflexion (L4) 5 Normal Plantarflexion (S1) 5 Normal Inversion 5 Normal Eversion (S1) 5 Normal Left Dorsiflexion (L4) 5 Normal Plantarflexion (S1) 5 Normal Inversion 5 Normal Eversion (S1) 5 Normal Comments 20 heel raises B PT-OP-Q Treatments Start: 04/30/20 17:12 Freq: Status: Active Protocol: Document 09/10/20 07:36 [facility] (Rec: 09/10/20 09:01 [facility] [id number]) Therapeutic Exercises Standing Exercises lunge Standing Exercise Name fwd & side Side bilateral Equipment Used 10# in hands Reps/Minutes 10 ea Comments cues for knee position squats Standing Exercise Name 1. squat w/10# 2.SL in mirror Side bilateral Reps/Minutes 1.15 2. 10 hip hinge Standing Exercise Name SL Side bilateral Equipment Used 5# B Reps/Minutes 2x12 Neuro Re-Education Treatment Balance Activities bosu Comments 1. upsidedown bosu squat x15 2. blue side step up april x6 B Coordination Activities plyos Comments squat jumps x10 mini Self-Care/Home Management Treatment Education Other Education edu to start progressing time on trails, take brace off at home and when going for walks on pavement. PT-OP-T Assessment and Plan Start: 04/30/20 17:12 Freq: Status: Active Protocol: Document 09/10/20 07:36 [facility] (Rec: 09/10/20 09:01 [facility] [id number]) Physical Therapy Assessment Goals explosive Short Term Goal (STG) Pt will be able to land w/ jumping down w/good mechanics from at least 16 in w/o pain. STG Duration 10/17/20 Boiler/Chiller Technician Goal (LTG) pt will be able to jog/run as needed without inc pain. LTG Duration 11/10/20 LEFS Impairment 23 Short Term Goal (STG) Pt will improve score to at least 45/80 to show improved functional ability. STG Duration achieved Longterm Goal (LTG) Pt will improve score to at least 75/80 to show improved functional ability. 07/17-49 09/10-60 LTG Duration 11/10 functional activity Short Term Goal (STG) Pt will be able to squat down to picker tender helper objects. STG Duration achieved Longterm Goal (LTG) Pt will be able to return to full work and school duties without inc pain. 07/17-has not returned yet. 09/10- able to do w/2/10 pain LTG Duration 11/10/20 gait Short Term Goal (STG) Pt will be able to amb with good mechanics with brace for up to 1/2 mile. STG Duration achieved Boiler/Chiller Technician Goal (LTG) pt will be able to amb without brace with good mechancis and no pain for at least 2 miles. LTG Duration Achieved strength Short Term Goal (STG) Pt will be indep with HEP STG Duration achieved progressing as needed Longterm Goal (LTG) Pt will score 5/5 on all LE strength B to show imrpoved stability to allow full return to activity 07/17-significant progress LTG Duration achieved ROM Short Term Goal (STG) Pt will improve AROM to 0-115 STG Duration achieved Boiler/Chiller Technician Goal (LTG) Pt will have full ROM 0-135 without pain in order to allow him to return to typical activities including descending stairs without pain . 07/17-improving funtionality but 0-125 LTG Duration achieved Assessment Summary Assessment Pt has made excellent progress towards goals with good ROM and strength but still requires further work towards functional strength and stability in order to do more hiking, working etc w/o brace and progress to running/ jumping. He was able to do all strengthening exercises without brace but all jump and uneven surfaces w/brace. Physical Therapy Plan Frequency and Duration Frequency of Treatment 1x/week to every oth Duration of Treatment 3 months Plan of Care Start Date 09/10/20 Plan of Care End Date 11/10/20 Therapeutic Interventions Therapeutic Interventions Aquatic Therapy,Balance Training,Gait Training,Home Exercise Program,Joint Mobilizations,Manual Therapy, Neuromuscular Re-education, Patient/Caregiver Education, Self-Care/Home Management,Soft Tissue Mobilization,Taping, Therapeutic Activities, Therapeutic Exercises Modalities Cold Pack/Ice Massage,Electric Stimulation,Hot Packs, Infrared Therapy,Iontophoresis ,Ultrasound Next Visit Focus/Plan Next Note Type Treatment Note Next Visit Plan start working on jump and landing with brace, cont to work quad strength for explosiveness
--- NOTE | 2020-09-10 09:03 | PT.OPPOC ---
Physical, Occupational & Speech Therapy At [facility] Current Diagnoses Recurrent dislocation of patella, left knee (09/10/20) Difficulty in walking, not elsewhere classified (09/10/20) Weakness (09/10/20) Visit Care Team Role Provider Type Octavio Whaley MD Family Provider Physician Primary Care Provider Specialty: Internal Medicine Address: [address] [place] [address], [facility] [address], [place], [address] Email: [email or web address] Henrik Cabrera MD Attending Provider Non-Staff Referring Provider Specialty: Medical Address: [address] [place] [address], [id number] Email: Plan Of Care PT-OP-T Assessment and Plan Start: 04/30/20 17:12 Freq: Status: Active Protocol: Document 09/10/20 07:36 [facility] (Rec: 09/10/20 09:01 [facility] [id number]) Physical Therapy Assessment Goals explosive Short Term Goal (STG) Pt will be able to land w/ jumping down w/good mechanics from at least 16 in w/o pain. STG Duration 10/17/20 Academic Affairs Coordinator Goal (LTG) pt will be able to jog/run as needed without inc pain. LTG Duration 11/10/20 LEFS Impairment 23 Short Term Goal (STG) Pt will improve score to at least 45/80 to show improved functional ability. STG Duration achieved Custodial Goal (LTG) Pt will improve score to at least 75/80 to show improved functional ability. 07/17-49 09/10-60 LTG Duration 11/10 functional activity Short Term Goal (STG) Pt will be able to squat down to pickle cutter objects. STG Duration achieved Custodial Goal (LTG) Pt will be able to return to full work and school duties without inc pain. 07/17-has not returned yet. 09/10- able to do w/2/10 pain LTG Duration 11/10/20 gait Short Term Goal (STG) Pt will be able to amb with good mechanics with brace for up to 1/2 mile. STG Duration achieved Custodial Goal (LTG) pt will be able to amb without brace with good mechancis and no pain for at least 2 miles. LTG Duration Achieved strength Short Term Goal (STG) Pt will be indep with HEP STG Duration achieved progressing as needed Academic Affairs Coordinator Goal (LTG) Pt will score 5/5 on all LE strength B to show imrpoved stability to allow full return to activity 07/17-significant progress LTG Duration achieved ROM Short Term Goal (STG) Pt will improve AROM to 0-115 STG Duration achieved Custodial Goal (LTG) Pt will have full ROM 0-135 without pain in order to allow him to return to typical activities including descending stairs without pain . 07/17-improving funtionality but 0-125 LTG Duration achieved Assessment Summary Assessment Pt has made excellent progress towards goals with good ROM and strength but still requires further work towards functional strength and stability in order to do more hiking, working etc w/o brace and progress to running/ jumping. He was able to do all strengthening exercises without brace but all jump and uneven surfaces w/brace. Physical Therapy Plan Frequency and Duration Frequency of Treatment 1x/week to every oth Duration of Treatment 3 months Plan of Care Start Date 09/10/20 Plan of Care End Date 11/10/20 Therapeutic Interventions Therapeutic Interventions Aquatic Therapy,Balance Training,Gait Training,Home Exercise Program,Joint Mobilizations,Manual Therapy, Neuromuscular Re-education, Patient/Caregiver Education, Self-Care/Home Management,Soft Tissue Mobilization,Taping, Therapeutic Activities, Therapeutic Exercises Modalities Cold Pack/Ice Massage,Electric Stimulation,Hot Packs, Infrared Therapy,Iontophoresis ,Ultrasound Next Visit Focus/Plan Next Note Type Treatment Note Next Visit Plan start working on jump and landing with brace, cont to work quad strength for explosiveness Plan of Care Dates Plan of Care Start Date 09/10/20 Plan of Care End Date 11/10/20 Electronically Signed by: Frances Antonio, PT 09/10/20 0903 Please Sign and Return: I have reviewed this Plan of Care and certify that the skilled therapy services above are required to meet the patient?s needs. Physician Signature Date Printed Name and Credentials Clinical Instructor Signature Printed Name and Credentials
--- NOTE | 2020-09-22 08:15 | PT.OTN ---
Current Diagnoses Recurrent dislocation of patella, left knee (09/22/20) Difficulty in walking, not elsewhere classified (09/22/20) Weakness (09/22/20) Physical Therapy Treatment Note PT-OP-A Visit Information Start: 04/30/20 17:12 Freq: Status: Active Protocol: Document 09/22/20 07:40 [facility] (Rec: 09/22/20 08:15 [facility] [id number]) Out-Patient Physical Therapy Visit Information Visit Information Visit Type Treatment Note Visit Start Time 07:30 Visit Stop Time 08:12 Total Visit Minutes 42 Visit Number 18 Number of TRUCK JUMPER Visits 0 PT-OP-B Current Condition Start: 04/30/20 17:12 Freq: Status: Active Protocol: Document 05/01/20 07:27 [facility] (Rec: 05/01/20 08:15 [facility] [id number]) Current Condition History of Current Condition Onset Date 04/25/20 Current Complaints L arthroscopic lat release, open MPFL reconstruction& tibial tub osteotomy History of Current Condition Pt reports surgery went well and they used donor tendon for L arthroscopic lat release, open MPFL reconstruction& tibial tubercle osteotomy. Prior to surgery, pt subluxed his patella at least 4 times starting in 2014 when he first tore it. He had slipped on a piece of ice and leg went out to the side. Pain has not been too bad. Pt got CPM yesterday and that he will have it for 3 weeks. Pt was told to keep brace at 0 and can reposition with up to 30 deg. He changed the guaze yesterday. Follow up is next Tuesday. Was told you bear up to 50% on his LLE. 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 PT-OP-F Manual Assessment Start: 04/30/20 17:12 Freq: Status: Active Protocol: Document 05/01/20 07:27 [facility] (Rec: 05/01/20 08:15 [facility] [id number]) Manual Assessments Soft Tissue Assessment Soft Tissue Mobility Assessment mild swelling on L side, Pt w/ guaze wrap so incision not assessed PT-OP-G Mobility & Gait Start: 04/30/20 17:12 Freq: Status: Active Protocol: Document 05/01/20 07:27 [facility] (Rec: 05/01/20 08:15 [facility] [id number]) OP Gait Assessment Comments Gait Comments Pt amb in locked brace NWB with B auxillary crutches PT-OP-K Range of Motion Start: 04/30/20 17:12 Freq: Status: Active Protocol: Document 09/10/20 07:36 [facility] (Rec: 09/10/20 09:01 [facility] [id number]) Knee Goniometric Range of Motion Knee Left Flexion Active (degrees) 135 Extension Active (degrees) 0 PT-OP-M Strength Start: 04/30/20 17:12 Freq: Status: Active Protocol: Document 09/10/20 07:36 [facility] (Rec: 09/10/20 09:01 [facility] [id number]) Hip Strength Hip Manual Muscle Testing Right Flexion (L2) 5 Normal Extension (S1) 5 Normal Abduction 5 Normal Adduction 5 Normal External Rotation 5 Normal Internal Rotation 5 Normal Left Flexion (L2) 5 Normal Extension (S1) 5 Normal Abduction 5 Normal Adduction 5 Normal External Rotation 5 Normal Internal Rotation 5 Normal Knee Strength Knee Manual Muscle Testing Right Flexion (S2) 5 Normal Extension (L3) 5 Normal Left Flexion (S2) 5 Normal Extension (L3) 5 Normal Ankle/Foot Strength Ankle and Foot Manual Muscle Testing Right Dorsiflexion (L4) 5 Normal Plantarflexion (S1) 5 Normal Inversion 5 Normal Eversion (S1) 5 Normal Left Dorsiflexion (L4) 5 Normal Plantarflexion (S1) 5 Normal Inversion 5 Normal Eversion (S1) 5 Normal Comments 20 heel raises B PT-OP-Q Treatments Start: 04/30/20 17:12 Freq: Status: Active Protocol: Document 09/22/20 07:40 [facility] (Rec: 09/22/20 08:15 [facility] [id number]) Cardio Equipment Elliptical Duration (Minutes) 8 Resistance 6 Gym Equipment Shuttle Recovery jump Resistance 50# Shuttle Recovery Platform Stable Reps/Time 2x15 Therapeutic Exercises Standing Exercises hike hike Side bilateral Reps/Minutes 10 SL Standing Exercise Name squat Side bilateral Reps/Minutes 3x8 squats Standing Exercise Name explosive up w/heel raise Side bilateral Equipment Used 10# Reps/Minutes 15 Neuro Re-Education Treatment Balance Activities bosu Comments 1. upsidedown bosu squat x15 2. blue side step up april x10 B 3. lunge to bosu x12 B Coordination Activities plyos Details no brace Comments 1.squat jumps x15 mini 2. mini skaters x15 B PT-OP-T Assessment and Plan Start: 04/30/20 17:12 Freq: Status: Active Protocol: Document 09/22/20 07:40 [facility] (Rec: 09/22/20 08:15 [facility] [id number]) Physical Therapy Assessment Goals explosive Short Term Goal (STG) Pt will be able to land w/ jumping down w/good mechanics from at least 16 in w/o pain. STG Duration 10/17/20 Care Home Goal (LTG) pt will be able to jog/run as needed without inc pain. LTG Duration 11/10/20 LEFS Impairment 23 Short Term Goal (STG) Pt will improve score to at least 45/80 to show improved functional ability. STG Duration achieved Tank Assembler Goal (LTG) Pt will improve score to at least 75/80 to show improved functional ability. 07/17-49 09/10-60 LTG Duration 11/10 functional activity Short Term Goal (STG) Pt will be able to squat down to pickle sorter objects. STG Duration achieved Care Home Goal (LTG) Pt will be able to return to full work and school duties without inc pain. 07/17-has not returned yet. 09/10- able to do w/2/10 pain LTG Duration 11/10/20 gait Short Term Goal (STG) Pt will be able to amb with good mechanics with brace for up to 1/2 mile. STG Duration achieved Care Home Goal (LTG) pt will be able to amb without brace with good mechancis and no pain for at least 2 miles. LTG Duration Achieved strength Short Term Goal (STG) Pt will be indep with HEP STG Duration achieved progressing as needed Care Home Goal (LTG) Pt will score 5/5 on all LE strength B to show imrpoved stability to allow full return to activity 07/17-significant progress LTG Duration achieved ROM Short Term Goal (STG) Pt will improve AROM to 0-115 STG Duration achieved Tank Assembler Goal (LTG) Pt will have full ROM 0-135 without pain in order to allow him to return to typical activities including descending stairs without pain . 07/17-improving funtionality but 0-125 LTG Duration achieved Assessment Summary Assessment Pt requires significant cueing w/SL squatting to focus on hip and knee position and alignment. He cont to improve with abilityt to explosive activities and but faitgue is still notable with inc activity. Physical Therapy Plan Frequency and Duration Frequency of Treatment 1x/week to every oth Duration of Treatment 3 months Plan of Care Start Date 09/10/20 Plan of Care End Date 11/10/20 Next Visit Focus/Plan Next Note Type Treatment Note Next Visit Plan cont working on jump and landing with brace, cont to work quad strength for explosiveness
--- NOTE | 2020-10-08 09:05 | PT.OTN ---
Current Diagnoses Recurrent dislocation of patella, left knee (10/08/20) Difficulty in walking, not elsewhere classified (10/08/20) Weakness (10/08/20) Physical Therapy Treatment Note PT-OP-A Visit Information Start: 04/30/20 17:12 Freq: Status: Active Protocol: Document 10/08/20 08:21 [facility] (Rec: 10/08/20 09:05 [facility] [id number]) Out-Patient Physical Therapy Visit Information Visit Information Visit Type Treatment Note Visit Start Time 08:20 Visit Stop Time 09:00 Total Visit Minutes 40 Visit Number 19 Number of PATIENT SITTER Visits 0 PT-OP-B Current Condition Start: 04/30/20 17:12 Freq: Status: Active Protocol: Document 05/01/20 07:27 [facility] (Rec: 05/01/20 08:15 [facility] [id number]) Current Condition History of Current Condition Onset Date 04/25/20 Current Complaints L arthroscopic lat release, open MPFL reconstruction& tibial tub osteotomy History of Current Condition Pt reports surgery went well and they used donor tendon for L arthroscopic lat release, open MPFL reconstruction& tibial tubercle osteotomy. Prior to surgery, pt subluxed his patella at least 4 times starting in 2014 when he first tore it. He had slipped on a piece of ice and leg went out to the side. Pain has not been too bad. Pt got CPM yesterday and that he will have it for 3 weeks. Pt was told to keep brace at 0 and can reposition with up to 30 deg. He changed the guaze yesterday. Follow up is next Tuesday. Was told you bear up to 50% on his LLE. Prior Treatments and Tests Tried PT and was unsuccessful Treatment Goals Patient/Caregiver Goals return to hiking, has clinical starting in a couple weeks, make sure that he can get as much movement out of his knee as possible w/goal of full range PT-OP-C Subjective Start: 04/30/20 17:12 Freq: Status: Active Protocol: Document 10/08/20 08:21 [facility] (Rec: 10/08/20 09:05 [facility] [id number]) OP-PT Subjective Patient Comments Patient Comments Pt reports he went camping and was jogging between sites and isn't having apin with this. He slipped in mud getting down to the water but didn't hurt himself. He isn't wearing his brace to work anymore. He only wears his brace when he is out on the boat. PT-OP-F Manual Assessment Start: 04/30/20 17:12 Freq: Status: Active Protocol: Document 05/01/20 07:27 [facility] (Rec: 05/01/20 08:15 [facility] [id number]) Manual Assessments Soft Tissue Assessment Soft Tissue Mobility Assessment mild swelling on L side, Pt w/ guaze wrap so incision not assessed PT-OP-G Mobility & Gait Start: 04/30/20 17:12 Freq: Status: Active Protocol: Document 05/01/20 07:27 [facility] (Rec: 05/01/20 08:15 [facility] [id number]) OP Gait Assessment Comments Gait Comments Pt amb in locked brace NWB with B auxillary crutches PT-OP-K Range of Motion Start: 04/30/20 17:12 Freq: Status: Active Protocol: Document 09/10/20 07:36 [facility] (Rec: 09/10/20 09:01 [facility] [id number]) Knee Goniometric Range of Motion Knee Left Flexion Active (degrees) 135 Extension Active (degrees) 0 PT-OP-M Strength Start: 04/30/20 17:12 Freq: Status: Active Protocol: Document 09/10/20 07:36 [facility] (Rec: 09/10/20 09:01 [facility] [id number]) Hip Strength Hip Manual Muscle Testing Right Flexion (L2) 5 Normal Extension (S1) 5 Normal Abduction 5 Normal Adduction 5 Normal External Rotation 5 Normal Internal Rotation 5 Normal Left Flexion (L2) 5 Normal Extension (S1) 5 Normal Abduction 5 Normal Adduction 5 Normal External Rotation 5 Normal Internal Rotation 5 Normal Knee Strength Knee Manual Muscle Testing Right Flexion (S2) 5 Normal Extension (L3) 5 Normal Left Flexion (S2) 5 Normal Extension (L3) 5 Normal Ankle/Foot Strength Ankle and Foot Manual Muscle Testing Right Dorsiflexion (L4) 5 Normal Plantarflexion (S1) 5 Normal Inversion 5 Normal Eversion (S1) 5 Normal Left Dorsiflexion (L4) 5 Normal Plantarflexion (S1) 5 Normal Inversion 5 Normal Eversion (S1) 5 Normal Comments 20 heel raises B PT-OP-Q Treatments Start: 04/30/20 17:12 Freq: Status: Active Protocol: Document 10/08/20 08:21 [facility] (Rec: 10/08/20 09:05 [facility] [id number]) Cardio Equipment Elliptical Duration (Minutes) 5 Resistance 5 Gym Equipment Shuttle Recovery jump Resistance 62# Shuttle Recovery Platform Stable Reps/Time 2x15 Therapeutic Exercises Standing Exercises squats Standing Exercise Name SL squat Side bilateral Reps/Minutes 12 Comments in mirror cues for pelvis hip hinge Standing Exercise Name SL Side bilateral Reps/Minutes 2x10 Gait Training Gait Activity gait Description working on equal push off B Comments jogging outside Neuro Re-Education Treatment Balance Activities bosu Comments 1. upsidedown bosu squat x15 2. blue side step up april x10 B 3. lunge to bosu x12 B Coordination Activities plyos Details no brace Comments 1.squat jumps x15 mini 2. mini skaters x15 B 3. land from jump off 8 in step x10 B 4. fwd SL hop x10 B PT-OP-T Assessment and Plan Start: 04/30/20 17:12 Freq: Status: Active Protocol: Document 10/08/20 08:21 [facility] (Rec: 10/08/20 09:05 [facility] [id number]) Physical Therapy Assessment Goals explosive Short Term Goal (STG) Pt will be able to land w/ jumping down w/good mechanics from at least 16 in w/o pain. STG Duration 10/17/20 [facility] Goal (LTG) pt will be able to jog/run as needed without inc pain. LTG Duration 11/10/20 LEFS Impairment 23 Short Term Goal (STG) Pt will improve score to at least 45/80 to show improved functional ability. STG Duration achieved [facility] Goal (LTG) Pt will improve score to at least 75/80 to show improved functional ability. 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 STG Duration achieved [facility] Goal (LTG) Pt will be able to return to full work and school duties without inc pain. 07/17-has not returned yet. 09/10- able to do w/2/10 pain LTG Duration 11/10/20 gait Short Term Goal (STG) Pt will be able to amb with good mechanics with brace for up to 1/2 mile. STG Duration achieved [facility] Goal (LTG) pt will be able to amb without brace with good mechancis and no pain for at least 2 miles. LTG Duration Achieved strength Short Term Goal (STG) Pt will be indep with HEP STG Duration achieved progressing as needed [facility]ci Goal (LTG) Pt will score 5/5 on all LE strength B to show imrpoved stability to allow full return to activity 07/17-significant progress LTG Duration achieved ROM Short Term Goal (STG) Pt will improve AROM to 0-115 STG Duration achieved Emt B Goal (LTG) Pt will have full ROM 0-135 without pain in order to allow him to return to typical activities including descending stairs without pain . 07/17-improving funtionality but 0-125 LTG Duration achieved Assessment Summary Assessment Pt is showing signficiantly improved strength with more equal strength B. He still shows some dec push off w/LLE but improved w/cues during running. Physical Therapy Plan Frequency and Duration Frequency of Treatment 1x/week to every oth Duration of Treatment 3 months Plan of Care Start Date 09/10/20 Plan of Care End Date 11/10/20 Next Visit Focus/Plan Next Note Type Treatment Note Next Visit Plan cont working on jump and landing with brace, cont to work quad strength for explosiveness
--- NOTE | 2020-10-22 08:17 | PT.OTN ---
Current Diagnoses Recurrent dislocation of patella, left knee (10/22/20) Difficulty in walking, not elsewhere classified (10/22/20) Weakness (10/22/20) Physical Therapy Treatment Note PT-OP-A Visit Information Start: 04/30/20 17:12 Freq: Status: Active Protocol: Document 10/22/20 07:35 [facility] (Rec: 10/22/20 08:17 [facility] [id number]) Out-Patient Physical Therapy Visit Information Visit Information Visit Type Discharge Summary Visit Start Time 07:31 Visit Stop Time 08:09 Total Visit Minutes 38 Visit Number 20 Number of RETAIL PERSONAL BANKER Visits 0 PT-OP-B Current Condition Start: 04/30/20 17:12 Freq: Status: Active Protocol: Document 05/01/20 07:27 [facility] (Rec: 05/01/20 08:15 [facility] [id number]) Current Condition History of Current Condition Onset Date 04/25/20 Current Complaints L arthroscopic lat release, open MPFL reconstruction& tibial tub osteotomy History of Current Condition Pt reports surgery went well and they used donor tendon for L arthroscopic lat release, open MPFL reconstruction& tibial tubercle osteotomy. Prior to surgery, pt subluxed his patella at least 4 times starting in 2014 when he first tore it. He had slipped on a piece of ice and leg went out to the side. Pain has not been too bad. Pt got CPM yesterday and that he will have it for 3 weeks. Pt was told to keep brace at 0 and can reposition with up to 30 deg. He changed the guaze yesterday. Follow up is next Tuesday. Was told you bear up to 50% on his LLE. Prior Treatments and Tests Tried PT and was unsuccessful Treatment Goals Patient/Caregiver Goals return to hiking, has clinical starting in a couple weeks, make sure that he can get as much movement out of his knee as possible w/goal of full range PT-OP-C Subjective Start: 04/30/20 17:12 Freq: Status: Active Protocol: Document 10/22/20 07:35 [facility] (Rec: 10/22/20 08:17 [facility] [id number]) OP-PT Subjective Patient Comments Patient Comments Pt doesn't feel limited at all .He has been doing a lot of crouches at home. He feels like he is doing more than he has in a long time. PT-OP-F Manual Assessment Start: 04/30/20 17:12 Freq: Status: Active Protocol: Document 05/01/20 07:27 [facility] (Rec: 05/01/20 08:15 [facility] [id number]) Manual Assessments Soft Tissue Assessment Soft Tissue Mobility Assessment mild swelling on L side, Pt w/ guaze wrap so incision not assessed PT-OP-G Mobility & Gait Start: 04/30/20 17:12 Freq: Status: Active Protocol: Document 05/01/20 07:27 [facility] (Rec: 05/01/20 08:15 [facility] [id number]) OP Gait Assessment Comments Gait Comments Pt amb in locked brace NWB with B auxillary crutches PT-OP-K Range of Motion Start: 04/30/20 17:12 Freq: Status: Active Protocol: Document 10/22/20 07:35 [facility] (Rec: 10/22/20 08:17 [facility] [id number]) Knee Goniometric Range of Motion Knee Left Flexion Active (degrees) 137 PT-OP-M Strength Start: 04/30/20 17:12 Freq: Status: Active Protocol: Document 09/10/20 07:36 [facility] (Rec: 09/10/20 09:01 [facility] [id number]) Hip Strength Hip Manual Muscle Testing Right Flexion (L2) 5 Normal Extension (S1) 5 Normal Abduction 5 Normal Adduction 5 Normal External Rotation 5 Normal Internal Rotation 5 Normal Left Flexion (L2) 5 Normal Extension (S1) 5 Normal Abduction 5 Normal Adduction 5 Normal External Rotation 5 Normal Internal Rotation 5 Normal Knee Strength Knee Manual Muscle Testing Right Flexion (S2) 5 Normal Extension (L3) 5 Normal Left Flexion (S2) 5 Normal Extension (L3) 5 Normal Ankle/Foot Strength Ankle and Foot Manual Muscle Testing Right Dorsiflexion (L4) 5 Normal Plantarflexion (S1) 5 Normal Inversion 5 Normal Eversion (S1) 5 Normal Left Dorsiflexion (L4) 5 Normal Plantarflexion (S1) 5 Normal Inversion 5 Normal Eversion (S1) 5 Normal Comments 20 heel raises B PT-OP-Q Treatments Start: 04/30/20 17:12 Freq: Status: Active Protocol: Document 10/22/20 07:35 [facility] (Rec: 10/22/20 08:17 [facility] [id number]) Cardio Equipment Elliptical Duration (Minutes) 5 Resistance 6 Therapeutic Exercises Standing Exercises stretch Standing Exercise Name 1.HS 2. Quad Side bilateral Reps/Minutes 30 sec ea SL Standing Exercise Name squat Side bilateral Reps/Minutes 10 lunge Standing Exercise Name fwd & side Side bilateral Reps/Minutes 10 ea squats Standing Exercise Name DL squat Side bilateral Reps/Minutes 15 Comments min cueing for knee position hip hinge Standing Exercise Name SL Side bilateral Reps/Minutes 10 heel raises Standing Exercise Name SL Side bilateral Reps/Minutes 30 Neuro Re-Education Treatment Balance Activities SLS Comments 1. SLS focus hip under body 2. EC Coordination Activities plyos Details no brace Comments 1.squat jumps x15 2. mini skaters x15 B 3. land from jump off 8 in step, 12 in, 16 in steps x5ea 4. fwd SL hop x10 B PT-OP-T Assessment and Plan Start: 04/30/20 17:12 Freq: Status: Active Protocol: Document 10/22/20 07:35 [facility] (Rec: 10/22/20 08:17 [facility] [id number]) Physical Therapy Assessment Goals explosive Short Term Goal (STG) Pt will be able to land w/ jumping down w/good mechanics from at least 16 in w/o pain. STG Duration achieved Stock Patcher Goal (LTG) pt will be able to jog/run as needed without inc pain. LTG Duration achieved LEFS Impairment 23 Short Term Goal (STG) Pt will improve score to at least 45/80 to show improved functional ability. STG Duration achieved Custodial Goal (LTG) Pt will improve score to at least 75/80 to show improved functional ability. 07/17-49 8-60 LTG Duration 69/80 functional activity Short Term Goal (STG) Pt will be able to squat down to vegetable picker objects. STG Duration achieved Stock Patcher Goal (LTG) Pt will be able to return to full work and school duties without inc pain. 07/17-has not returned yet. 09/10- able to do w/2/10 pain LTG Duration achieved gait Short Term Goal (STG) Pt will be able to amb with good mechanics with brace for up to 1/2 mile. STG Duration achieved Stock Patcher Goal (LTG) pt will be able to amb without brace with good mechancis and no pain for at least 2 miles. LTG Duration Achieved strength Short Term Goal (STG) Pt will be indep with HEP STG Duration achieved progressing as needed Custodial Goal (LTG) Pt will score 5/5 on all LE strength B to show imrpoved stability to allow full return to activity 07/17-significant progress LTG Duration achieved ROM Short Term Goal (STG) Pt will improve AROM to 0-115 STG Duration achieved Stock Patcher Goal (LTG) Pt will have full ROM 0-135 without pain in order to allow him to return to typical activities including descending stairs without pain . 07/17-improving funtionality but 0-125 LTG Duration achieved Assessment Summary Assessment Pt is making excellent progress with therapy. He is now able to do all activities w/o c/o of much diffculty. He palns to cont to strengthen and go ot the gym to work on his stability. He is idnep w/ HEP and DC d/t meeting most goals Physical Therapy Plan Discharge Physical Therapy Discharge Reasons Goals Met
== END 2020-10-22 09:08 | disposition home or self-care (01) ==
LOC: PHYS 07:30
PROVIDERS: Family Provider Student in an Organized Health Care Education/Training Program; PCP Student in an Organized Health Care Education/Training Program; Referring Provider Orthopaedic Surgery; Visit Provider Orthopaedic Surgery
DX: M22.02 Recurrent dislocation of patella, left knee (principal); R53.1 Weakness; R26.2 Difficulty in walking, not elsewhere classified
CPT/HCPCS: 97110; 97112; 97116; 97140; 97162

== ENCOUNTER → 2020-11-08 08:47 | Outpatient (CLI) | payer OTHER, SELFPAY ==
[2020-11-08 09:11] LABS: COVID19 -Nasal RAPID Negative (Negative)
== END ==
PROVIDERS: Family Provider Student in an Organized Health Care Education/Training Program; PCP Student in an Organized Health Care Education/Training Program; Visit Provider Physician Assistant
DX: Z20.822 Contact with and (suspected) exposure to COVID-19 (principal)
CPT/HCPCS: 87635

== ENCOUNTER → 2020-11-14 08:41 | Outpatient (CLI) | payer OTHER, SELFPAY ==
[2020-11-14 09:51] LABS: COVID19 -Nasal RAPID Negative (Negative)
== END ==
PROVIDERS: Family Provider Student in an Organized Health Care Education/Training Program; PCP Student in an Organized Health Care Education/Training Program; Referring Provider Nurse Practitioner; Visit Provider Nurse Practitioner
DX: Z20.822 Contact with and (suspected) exposure to COVID-19 (principal)
CPT/HCPCS: 87635

== ENCOUNTER → 2020-11-20 07:09 | Outpatient (CLI) | payer OTHER, SELFPAY ==
[2020-11-20 12:17] LABS: COVID19 -Nasal RAPID Negative (Negative)
== END ==
PROVIDERS: Family Provider Student in an Organized Health Care Education/Training Program; PCP Student in an Organized Health Care Education/Training Program; Visit Provider Nurse Practitioner
DX: Z20.822 Contact with and (suspected) exposure to COVID-19 (principal)
CPT/HCPCS: 87635

== ENCOUNTER → 2021-02-05 10:38 | Outpatient (CLI) | payer OTHER, SELFPAY ==
[2021-02-05 12:23] LABS: COVID19 -Nasal RAPID POSITIVE (Negative)
== END ==
PROVIDERS: Family Provider Student in an Organized Health Care Education/Training Program; PCP Student in an Organized Health Care Education/Training Program; Referring Provider Internal Medicine; Visit Provider Internal Medicine
DX: U07.1 COVID-19 (principal)
CPT/HCPCS: 87635; C9803

== ENCOUNTER → 2021-09-25 08:22 | Outpatient (CLI) | payer OTHER, SELFPAY ==
[2021-09-25 09:21] LABS: Hemoglobin A1C% w Est Avg Glu 6.3 % (4.0-6.0)
[2021-09-25 09:50] LABS: Alanine Aminotransferase 20 IU/L (<50); Albumin 4.4 g/dL (3.5-5.0); Albumin Globulin Ratio 1.5 (1.0-2.8); Alkaline Phosphatase 56 U/L (38-126); Aspartate Aminotransferase 26 IU/L (17-59); BUN Creatinine Ratio 21.3 (6-22); Bilirubin Total 0.5 mg/dL (0.2-1.3); Blood Urea Nitrogen 17 mg/dL (9-20); Calcium 9.2 mg/dL (8.4-10.2); Carbon Dioxide 28 mmol/L (22-32); Chloride 106 mmol/L (98-107); Estimated Glomerular Filt Rate > 60 mL/min (>60); Globulin 2.9 g/dL (1.7-4.1); Glucose 102 mg/dL (70-100); HEMOLYSIS < 15 (0-50); Potassium 4.2 mmol/L (3.4-5.1); Sodium 140 mmol/L (137-145); Total Protein 7.3 g/dL (6.3-8.2)
[2021-09-25 13:00] LABS: Microalbumi Creatinin Ratio Ur 6.3 ug/mg CR (<30); Microalbumin Urine Random 1.7 mg/dL (0-1.6)
== END ==
PROVIDERS: Family Provider Student in an Organized Health Care Education/Training Program; PCP Student in an Organized Health Care Education/Training Program; Referring Provider Internal Medicine Endocrinology, Diabetes & Metabolism; Visit Provider Internal Medicine Endocrinology, Diabetes & Metabolism
DX: E10.649 Type 1 diabetes mellitus with hypoglycemia without coma (principal)
CPT/HCPCS: 36415; 80053; 82043; 82570; 83036

== ENCOUNTER → 2021-11-05 15:32 | Outpatient (CLI) | payer OTHER, SELFPAY | PROVIDERS: Family Provider Student in an Organized Health Care Education/Training Program; PCP Student in an Organized Health Care Education/Training Program; Referring Provider Internal Medicine; Visit Provider Internal Medicine | DX: Z23 Encounter for immunization (principal) | CPT/HCPCS: 90471; 90686 ==

== ENCOUNTER → 2022-07-09 09:57 | Outpatient (CLI) | payer OTHER, SELFPAY ==
[2022-07-09 10:40] LABS: Alanine Aminotransferase 25 IU/L (<50); Albumin 4.6 g/dL (3.5-5.0); Albumin Globulin Ratio 1.5 (1.0-2.8); Alkaline Phosphatase 58 U/L (38-126); Aspartate Aminotransferase 27 IU/L (17-59); BUN Creatinine Ratio 16.9 (6-22); Bilirubin Total 1.1 mg/dL (0.2-1.3); Blood Urea Nitrogen 14 mg/dL (9-20); Calcium 9.4 mg/dL (8.4-10.2); Carbon Dioxide 28 mmol/L (22-32); Chloride 101 mmol/L (98-107); Cholesterol 175 mg/dL (140-199); Estimated Glomerular Filt Rate > 60 mL/min (>60); Globulin 3.1 g/dL (1.7-4.1); Glucose 149 mg/dL (70-100); HDL Cholesterol 49 mg/dL (40-60); HEMOLYSIS < 15 (0-50); LDL Cholesterol Calculated 117 mg/dL (<100); Potassium 4.2 mmol/L (3.4-5.1); Sodium 135 mmol/L (137-145); Total Protein 7.7 g/dL (6.3-8.2); Triglycerides 45 mg/dL (35-150)
[2022-07-09 13:29] LABS: Creatinine Urine Random 73.9 mg/dL
[2022-07-09 13:42] LABS: Microalbumin Urine Random < 0.6 mg/dL (0-1.6)
== END ==
PROVIDERS: Family Provider Student in an Organized Health Care Education/Training Program; PCP Student in an Organized Health Care Education/Training Program; Referring Provider Internal Medicine Endocrinology, Diabetes & Metabolism; Visit Provider Internal Medicine Endocrinology, Diabetes & Metabolism
DX: E10.649 Type 1 diabetes mellitus with hypoglycemia without coma (principal)
CPT/HCPCS: 36415; 80053; 80061; 82043; 82570; 83036

== ENCOUNTER → 2022-07-15 09:26 | Outpatient (CLI) | payer OTHER, SELFPAY ==
--- NOTE | 2022-07-15 09:28 | DI.RAD.S_ITS ---
PROCEDURE: XR CERVICAL SPINE 2V OR 3V INDICATIONS: Intermittent radiculopathy right arm TECHNIQUE: 3 view(s) of the cervical spine were acquired. COMPARISON: None. FINDINGS: Bones: No fractures or dislocations to the T1 level. The lateral masses of C1 appear intact on the odontoid view. No suspicious bony lesions. Soft tissues: No prevertebral soft tissue swelling. IMPRESSION: Unremarkable cervical spine plain films. Comment: Cervical spine MRI may be helpful. Dictated by: Shahriar Lovett M.D. on 07/15/2022 at 10:12 Approved by: Shahriar Lovett M.D. on 07/15/2022 at 10:13
== END ==
PROVIDERS: Family Provider Student in an Organized Health Care Education/Training Program; PCP Family Medicine; Referring Provider Family Medicine; Visit Provider Family Medicine
DX: S16.1XXA Strain of muscle, fascia and tendon at neck level, initial encounter (principal); X58.XXXA Exposure to other specified factors, initial encounter
CPT/HCPCS: 72040

== ENCOUNTER → 2023-01-06 10:23 | Outpatient (CLI) | payer OTHER, SELFPAY | PROVIDERS: Family Provider Student in an Organized Health Care Education/Training Program; PCP Family Medicine; Referring Provider Family Medicine; Visit Provider Family Medicine | DX: Z23 Encounter for immunization (principal) | CPT/HCPCS: 90471; 90686 ==

== ENCOUNTER → 2023-12-24 09:16 | Outpatient (CLI) | payer OTHER, SELFPAY ==
[2023-12-24 12:24] LABS: Cholesterol 205 mg/dL (140-199); HDL Cholesterol 57 mg/dL (40-60); LDL Cholesterol Calculated 140 mg/dL (<100); Triglycerides 39 mg/dL (35-150)
[2023-12-24 12:27] LABS: Creatinine Urine Random 249.97 mg/dL
[2023-12-24 12:29] LABS: Hemoglobin A1C% w Est Avg Glu 6.6 % (4.0-6.0)
== END ==
PROVIDERS: PCP Family Medicine; Referring Provider Internal Medicine Endocrinology, Diabetes & Metabolism; Visit Provider Internal Medicine Endocrinology, Diabetes & Metabolism
DX: E10.8 Type 1 diabetes mellitus with unspecified complications (principal); R79.89 Other specified abnormal findings of blood chemistry
CPT/HCPCS: 80061; 82043; 82570; 83036

== ENCOUNTER → 2024-01-12 13:25 | Outpatient (CLI) | payer OTHER, SELFPAY | PROVIDERS: PCP Family Medicine; Referring Provider Internal Medicine; Visit Provider Internal Medicine | DX: Z23 Encounter for immunization (principal) | CPT/HCPCS: 90471; 90656 ==